=== PATIENT | male | born 1955 | race Caucasian/White ===

== ENCOUNTER 2022-09-22 15:33 | Outpatient (OUT) | payer MEDICARE, OTHER, SELFPAY ==
[2022-09-22 16:04] LABS: Basophils Absolute Auto 0.1 10^3/uL (0.0-0.1); Basophils Percent Auto 0.8 % (0.2-2.0); Eosinophils Absolute Auto 0.2 10^3/uL (0.0-0.7); Eosinophils Percent Auto 3.4 % (0.9-7.0); Hematocrit 39.1 % (42.0-54.0); Hemoglobin 13.3 g/dL (14.0-18.0); Immature Granulocytes Abs Auto 0.02 10^3/uL (0.00-0.03); Immature Granulocytes Pct Auto 0.3 % (0.0-0.5); Lymphocytes Absolute Auto 1.4 10^3/uL (1.2-3.8); Lymphocytes Percent Auto 22.8 % (20.5-60.0); Mean Corpuscular Hemoglobin 30.2 pg (25.9-34.0); Mean Corpuscular Volume 88.7 fL (80.0-94.0); Mean Platelet Volume 10.6 fL (9.5-13.5); Monocytes Absolute Auto 0.5 10^3/uL (0.3-0.8); Neutrophils Percent Auto 64.7 % (43.0-75.0); Platelet Count 178 10^3/uL (150-450); Red Blood Count 4.41 10^6/uL (4.70-6.10); Red Cell Distribution Width 13.3 % (11.0-15.0); White Blood Count 6.1 10^3/uL (4.0-11.0)
[2022-09-22 16:27] LABS: Estimated Average Glucose 111 mg/dL; Glycohemoglobin A1C 5.5 % (4.5-6.2)
[2022-09-22 16:49] LABS: Alanine Aminotransferase 37 U/L (16-63); Albumin Globulin Ratio 1.1; Albumin Level 3.9 g/dL (3.4-5.0); Alkaline Phosphatase 95 U/L (46-116); Anion Gap 13.3; Aspartate Amino Transferase 21 U/L (15-37); BUN Creatinine Ratio 12.8; Bilirubin Total 0.9 mg/dL (0.2-1.0); Calcium 8.5 mg/dL (8.5-10.1); Carbon Dioxide 27.5 mmol/L (21.0-32.0); Chloride 104 mmol/L (98-107); Chol HDL Ratio 3.3; Cholesterol 159 mg/dL (<=200); Estimated GFR (African America >60 (>=60); Estimated GFR (Non-African Ame >60 (>=60); Free T3 2.68 pg/mL (2.18-3.98); Globulin 3.5 g/dL; Glucose 93 mg/dL (74-106); HDL Cholesterol 48 mg/dL (40-60); LDL Cholesterol Calculated 83.8 mg/dL; Potassium 3.8 mmol/L (3.5-5.1); Sodium 141 mmol/L (136-145); Thyroid Stimulating Hormone 1.813 uIU/mL (0.358-3.740); Total Protein 7.4 g/dL (6.4-8.2); Triglycerides 136 mg/dL (<=150); VLDL CHOLESTEROL 27.2 mg/dL
[2022-09-22 16:57] LABS: Prostate Specific Antigen Scrn 1.44 ng/mL (<=4.00)
== END 2022-09-22 15:34 | disposition home or self-care (01) ==
LOC: LAB 15:40
PROVIDERS: PCP Family Medicine; Visit Provider Family Medicine
DX: Z00.00 Encounter for general adult medical examination without abnormal findings (principal); Z12.5 Encounter for screening for malignant neoplasm of prostate; E78.5 Hyperlipidemia, unspecified; R73.09 Other abnormal glucose
CPT/HCPCS: 36415; 80053; 80061; 83036; 84436; 84443; 84481; 85025; G0103

== ENCOUNTER 2022-09-23 07:54 | Outpatient (REF) | payer MEDICARE, OTHER, SELFPAY ==
[2022-09-23 16:06] LABS: Occult Blood Negative
== END 2022-09-23 07:55 | disposition home or self-care (01) ==
LOC: LAB 07:54
PROVIDERS: PCP Family Medicine; Visit Provider Family Medicine
DX: Z00.00 Encounter for general adult medical examination without abnormal findings (principal)
CPT/HCPCS: G0328

== ENCOUNTER 2023-09-21 07:33 | Outpatient (OUT) | payer OTHER, SELFPAY ==
[2023-09-21 07:47] LABS: Basophils Percent Auto 0.6 % (0.2-2.0); Eosinophils Absolute Auto 0.2 10^3/uL (0.0-0.7); Eosinophils Percent Auto 3.3 % (0.9-7.0); Hematocrit 40.2 % (42.0-54.0); Hemoglobin 13.8 g/dL (14.0-18.0); Immature Granulocytes Abs Auto 0.01 10^3/uL (0.00-0.03); Immature Granulocytes Pct Auto 0.2 % (0.0-0.5); Lymphocytes Absolute Auto 1.3 10^3/uL (1.2-3.8); Lymphocytes Percent Auto 26.1 % (20.5-60.0); Mean Corpuscular HGB Conc 34.3 g/dL (29.9-35.2); Mean Corpuscular Hemoglobin 30.1 pg (25.9-34.0); Mean Corpuscular Volume 87.8 fL (80.0-94.0); Mean Platelet Volume 10.4 fL (9.5-13.5); Monocytes Absolute Auto 0.5 10^3/uL (0.3-0.8); Monocytes Percent Auto 9.6 % (1.7-12.0); Neutrophils Absolute Auto 3.1 10^3/uL (1.4-6.5); Neutrophils Percent Auto 60.2 % (43.0-75.0); Platelet Count 158 10^3/uL (150-450); Red Blood Count 4.58 10^6/uL (4.70-6.10); Red Cell Distribution Width 13.2 % (11.0-15.0); White Blood Count 5.1 10^3/uL (4.0-11.0)
[2023-09-21 08:29] LABS: Estimated Average Glucose 105 mg/dL; Glycohemoglobin A1C 5.3 % (4.5-6.2)
[2023-09-21 08:39] LABS: Alanine Aminotransferase 38 U/L (16-63); Albumin Globulin Ratio 1.2; Albumin Level 3.8 g/dL (3.4-5.0); Alkaline Phosphatase 85 U/L (46-116); Anion Gap 12.2; Aspartate Amino Transferase 22 U/L (15-37); BUN Creatinine Ratio 18.3; Calcium 8.5 mg/dL (8.5-10.1); Carbon Dioxide 27.7 mmol/L (21.0-32.0); Chloride 103 mmol/L (98-107); Chol HDL Ratio 3.3; Cholesterol 187 mg/dL (<=200); Estimated GFR (African America >60 (>=60); Estimated GFR (Non-African Ame >60 (>=60); Globulin 3.2 g/dL; Glucose 111 mg/dL (74-106); HDL Cholesterol 57 mg/dL (40-60); Potassium 3.9 mmol/L (3.5-5.1); Sodium 139 mmol/L (136-145); Thyroid Stimulating Hormone 2.272 uIU/mL (0.358-3.740); Triglycerides 173 mg/dL (<=150); VLDL CHOLESTEROL 34.6 mg/dL
== END 2023-09-21 07:34 | disposition home or self-care (01) ==
LOC: LAB 07:33
PROVIDERS: PCP Family Medicine; Visit Provider Family Medicine
DX: E78.00 Pure hypercholesterolemia, unspecified (principal); R53.83 Other fatigue; R73.09 Other abnormal glucose; Z12.12 Encounter for screening for malignant neoplasm of rectum; Z12.5 Encounter for screening for malignant neoplasm of prostate
CPT/HCPCS: 36415; 80053; 80061; 83036; 84436; 84443; 84481; 85025; G0103

== ENCOUNTER 2023-09-22 07:46 | Outpatient (REF) | payer OTHER, SELFPAY ==
--- OUTSIDE RECORDS SUMMARY | 2023-09-22 07:50 | XMS_ITS | CCD ---
Author Organization [facility] Care Team Providers Care Otter Trawler Boatswain Name Role Phone Gagan Lyles Unavailable Unavailable Rafal, Gagan W Unavailable Unavailable Rafal, Gagan W Unavailable Unavailable LORIE ZENG Unavailable Unavailable DANYELLE MAC Unavailable Unavailable LORIE ZENG Unavailable Unavailable SHELLEY BAINS Attending Unavailable SHELLEY BAINS Primary Care Unavailable SHELLEY BAINS Admitting Unavailable Allergies Allergy Classification Reported Allergen(s) Allergy Type Date of Onset Reaction(s) Facility (1 source) No Known Medication Allergies; Translations: [No Known Medication Allergies] Propensity to adverse reactions (disorder) [facility] Repository Results Test Name Value Interpretation Reference Range Facility [facility] 09-06-2017 Albumin 4.3 g/dL Normal 3.3-5.0 [facility] Comment on above: Performed By: #### 2 [id number], [id number] ####[facility] [address] [place] [address] Albumin 1.3 g/dL Normal 1.1-2.2 [facility] Comment on above: Performed By: #### 2 [id number], [id number] ####[facility] [address] [place] [address] Alkaline phosphatase (ALP) 87 Int._Unit/L Normal 21-98 [facility] Comment on above: Performed By: #### 2 [id number], [id number] ####[facility] [address] [place] [address] ALT Without P-5'-P enzyme act/vol 46 Int._Unit/L Normal 6-46 [facility] Comment on above: Performed By: #### 2 412048, [id number] ####[facility] [address] [place] [address] Anion gap 13 mmol/L Normal 6-16 [facility] Comment on above: Performed By: #### 2 846096, [id number] ####[facility] [address] [place] [address] Aspartate aminotransferase (AST) 37 Int._Unit/L Normal 5-43 [facility] Comment on above: Performed By: #### 2 471897, [id number] ####[facility] [address] [place] [address] Bilirubin (total) 0.7 mg/dL Normal 0.0-1.1 [facility] Comment on above: Performed By: #### 2 695131, [id number] ####[facility] [address] [place] [address] BUN/Creatinine Ratio 15 No Units Normal 10-20 [facility] Comment on above: Performed By: #### 2 472902, [id number] ####[facility] [address] [place] [address] Calcium 9.1 mg/dL Normal 8.9-11.1 [facility] Comment on above: Performed By: #### 2 685336, [id number] ####[facility] [address] [place] [address] Chloride 105 mmol/L Normal 101-111 [facility] Comment on above: Performed By: #### 2 817546, [id number] ####[facility] [address] [place] [address] CO2 27 mmol/L Normal 21-31 [facility] Comment on above: Performed By: #### 2 825063, [id number] ####[facility] [address] [place] [address] Creatinine 1.3 mg/dL Normal 0.5-1.3 [facility] Comment on above: Performed By: #### 2 738044, [id number] ####[facility] [address] [place] [address] Globulin 3.4 g/dL Normal 1.4-4.0 [facility] Comment on above: Performed By: #### 2 457796, [id number] ####[facility] [address] [place] [address] Glucose mass conc 146 mg/dL Normal 55-199 [facility] Comment on above: Result Comment: If t his glucose result represents a fasting glucose, interpretation should refer to the following reference range: 55-99 mg/dL Performed By: #### 2 325815, [id number] ####[facility] [address] [place] [address] Potassium molar conc 4.2 mmol/L Normal 3.5-5.3 [facility] Comment on above: Performed By: #### 2 607985, [id number] ####[facility] [address] [place] [address] Protein 7.7 g/dL Normal 6.0-7.8 [facility] Comment on above: Performed By: #### 2 867877, 10886054 ####[facility] [address] [place] [address] Sodium 141 mmol/L Normal 135-145 [facility] Comment on above: Performed By: #### 2 654220, [id number] ####[facility] [address] [place] [address] Urea nitrogen 20 mg/dL Normal 5-21 [facility] Comment on above: Performed By: #### 2 687646, [id number] ####[facility] [address] [place] [address] eGFRon 09-06-2017 eGFR (black) mL/min/{1.73_m2} Normal >=59 [facility] Comment on above: Order Comment: Order added by Discern Expert. Result Comment: eGFR is race adjusted. AA=. Performed By: #### 2 751807, [id number] ####[facility] [address] [place] [address] eGFR (non-black) 56 mL/min/1.73 m2 Low >=59 [facility] Comment on above: Order Comment: Order added by Discern Expert. Result Comment: Bookkeeper aguila kidney disease could be indicated at eGFR's of less than 60 mL/min/1.73m2. Kidney failure is indicated at less than 15 mL/min/1.73m2. Performed By: #### 2 432088, [id number] ####[facility] [address] [place] [address] Coding Summary.on 08-12-2017 Coding Summary. 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 However, the narrative phrase printed from the coding software may appear abbreviated, or result in slightly different terminology. Coded By: Sharla Stewart Date Saved: 08/12/2017 03:36 pm Normal [facility] Inpatient Patient Summaryon 08-09-2017 Inpatient Patient Summary [place] [id number] [employer], [place] [id number] Clinical SummaryPerson Information Name: YVONNE LANGE Age: 61 Years : 1955 12:00 AM Sex: Male PCP: LORIE ZENG DO Marital Status: Phone: [phone] Race:White Ethnicity:Non-Hispani c or Language:Welsh Visit Id: Visit Reason:S/P LEFT STENT PLACEMENT Speciality: Acuity: Enc Type: Outpatient Med Service: Surgery Arrival:08/09/2017 2:35 PM Discharge: Dispo Type: Address:[address] [place] [id number] Provider Notes: Diagnosis: Problems No Problems Documented Smoking Status: Functional Status:Sensory Deficits: History of Falls: Mobility Assistance Prior to Admission: ADLs: Current Level of Assistance for Self-Care/Mobility: Cognitive Status: Allergies No Known Medication Allergies Laboratory or Other Results This Visit (last charted value for your 08/09/2017 visit) No Laboratory or Other Results This Visit Measurements:Height: 177.8 cmWeight: Blood Pressure: Not Valued / Not ValuedBMI: Procedures No Procedures Documented Immunizations No Immunizations Documented This Visit Final Med List:No Medications Documented Care Team Members:Attending Physician: Gagan Lyles MDonsulting Physician: Referring Physician: Gagan Lyles MD Follow up:With: Address: When: Gagan Lyles Within 2 to 4 weeks Patient Education Information: EU - Cystoscopy with Stent Removal Discharge Instructions (CUSTOM) [facility] Main OR Intraoperative Recor don 08-09-2017 Main OR Intraoperative Record IntraOp Document Type FTURO Summary Primary Physician: Gagan Lyles MD Finalized Date/Time: 08/09/17 16:46:46 Pt. Name: YVONNE LANGE/Sex: 1955 Male Med Rec #: [id number] Physician: Gagan Lyles MD Financial #: [id number] Pt. Type: O Room/Bed: / Admit/Disch: 08/09/17 14:35:39 - Institution: Case Times FTURO Entry 1 Patient Times In Room 08/09/17 16:33:00 Out Room 08/09/17 16:43:00 Procedure Times Start 08/09/17 16:39:00 Stop 08/09/17 16:41:00 Anesthesia Times Last Modified By: Suzi RN, JACKLYNOREli 08/09/17 16:41:45 Case Attendance FTURO Entry 1 Entry 2 Entry 3 Case Attendee Gagan Lyles MD RN, JACKLYNOREli CST, Gwen E Role Performed Surgeon - Primary Program Manager - Primary Scrub - Primary Time In 08/09/17 16:37:00 08/09/17 16:33:00 08/09/17 16:33:00 Time Out 08/09/17 16:43:00 08/09/17 16:43:00 08/09/17 16:43:00 Procedure CYSTOSCOPY LOCAL WITH CYSTOSCOPY LOCAL WITH CYSTOSCOPY LOCAL WITH STENT REMOVAL(Left) STENT REMOVAL(Left) STENT REMOVAL(Left) Comments Last Modified By: Suzi RN, JACKLYNOR, JACKLYN Geiger RNOREli RN, CNOR, Lou Ann 08/09/17 16:41:48 08/09/17 16:41:48 08/09/17 16:41:48 Surgical Procedures FTURO Entry 1 Procedure Description Procedure CYSTOSCOPY LOCAL WITH Modifiers Left STENT REMOVAL Surgeon Description CYSTO LEFT STENT REMOVAL Primary Procedure Yes Primary Surgeon Gagan Lyles MD Start 08/09/17 16:39:00 Stop 08/09/17 16:41:00 Anesthesia Type Local Surgical Service Urology Wound Class 2 - Clean-Contaminated Last Modified By: JACKLYN Archer RNOREli 08/09/17 16:41:24 General Case Data FTURO Pre-Care Text: Classifies surgical wound, implements aseptic technique, initiates traffic control Entry 1 Case Information OR URO 1 FT Case Level None Wound Class 2 - Clean-Contaminated Specialty Urology Preop Diagnosis S/P LEFT STENT PLACEMENT Postop Same As Preop Yes Postop Diagnosis S/P LEFT STENT PLACEMENT Outcomes Met? Yes Last Modified By: DOMINGA Archer RN, Lou Ann 08/09/17 12:45:10 Post-Care Text: The patient is free from signs and symptoms of infection EU IntraOp - FTURO Pre-Care Text: Implements protective measures prior to operative or invasive procedure, confirms identity before the operative or invasive procedure, verifies operative procedure, surgical site, and laterality Entry 1 EU Perioperative Protocols Procedure(s) CYSTOSCOPY LOCAL WITH Patient Identity Birthday, ID Band STENT REMOVAL(Left) Verified (select at Check, Patient least 2): Participation Consents / H and P HandP, Surgery/Procedure Operative Site N/A Verified Consent Marking Verified Surgical Site Yes Laterality Verified n/a Verified Procedure Verified Yes Correct Patient Yes Position Verified Availability Equipment, Medication Time Out Gagan Lyles MD, Verified (If Participants Suzi MASON, CNOR, Eli Applicable) Daniel Monterroso CST, Gwen E Time Out Complete 08/09/17 16:37:00 Allergies Reviewed? Yes Allergies Reviewed Self/Patient With Body Position Supine Prep Area penis Prep Agents Betadine Solution Skin. Condition Dry, Warm, Unable to Description clothing on Visualize Additional Other (See Comment) Specimens Comment srent Specimens Collected Vitals - EU Blood Pressure Pulse Respirations SPO2 EBL 0 IandO - EU Total Intake 0 mL Total Output 0 mL Outcomes Met? Yes Last Modified By: ODMINGA Archer RN, Lou Ann 08/09/17 16:38:43 Post-Care Text: The patient is free from signs and symptoms of injury caused by extraneous objects Case Comments Finalized By: DOMINGA Archer RN, Lou Ann Document Signatures Signed By: DOMINGA Archer RN, Lou Ann 08/09/17 16:41 DOMINGA Archer RN, Lou Ann 08/09/17 16:46 Normal [facility] Main OR Preoperative Recordo n 08-09-2017 Main OR Preoperative Record Holding Area Document Type FTURO Summary Primary Physician: Gagan Lyles MD Finalized Date/Time: 08/09/17 16:53:01 Pt. Name: ANISA YVONNE Parmjit Patel/Sex: 1955 Male Med Rec #: [id number] Physician: Gagan Lyles MD Financial #: [id number] Pt. Type: O Room/Bed: / Admit/Disch: 08/09/17 14:35:39 - Institution: Case Times Holding FTURO Pre-Care Text: Verifies consent for planned procedure, identifies individual values and wishes concerning care, includes family members in perioperative teaching Secures patient's records' belongings, and valuables, maintains patient's dignity and privacy, and maintains patient confidentiality Entry 1 In Holding 08/09/17 16:13:00 Outcomes Met? Yes Last Modified By: Katerina Berry LPN 08/09/17 16:13:40 Post-Care Text: The patient participates in decisions affecting his or her perioperative plan of care The patient's right to privacy is maintained Surgery Checklist FTURO Entry 1 Patient Birthday, ID Band Procedure History and Physical, Identification: Check, Patient Verification: Surgical Consent, With Participation Patient NPO after Midnight: n/a Personal Items: Glasses Complaints of Pain: Yes Pain Comment: 05/24 left lower abd Skin Integrity Intact, [employer], Warm, & Dry Vitals - EU Blood Pressure 157/95 Pulse 67 bpm Respirations 16 br/min SPO2 Additional None RN Reviewed Yes Specimens Collected Last Modified By: DOMINGA Archer RN, Lou Ann 08/09/17 16:39:22 Finalized By: DOMINGA Archer RN, Lou Ann Document Signatures Signed By: Kristi BARBOSAJeannea 08/09/17 16:16 DOMINGA Archer RN, Lou Ann 08/09/17 16:39 DOMINGA Archer RN, Lou Ann 08/09/17 16:53 [facility] Operative Reporton 8 Operative Report Patient: FADY LANGE Age: 61 years Sex: Male : 1955 Associated Diagnoses: None Author: Gagan Lyles MD Procedure Operative Information Details: Date/ Time: 08/09/17 16:45:00. Pre-Op Dx: Foreign Body in Bladder - T19.1XXA. Post-Op Dx: Same. Anesthesia Type: Local. Procedure: Local Cystoscopy with Stent Removal. Complications: None. Risks/Benefits/Inform ed Consent: Surgical risks, benefits, details of the procedure have been explained to the patient, Full informed consent has been obtained. Intraoperative Information Prepped: The patient was placed in supine position, The patient was prepped with the Betadine solution. Anesthesia: 2% Xylocaine Jelly per urethra. Procedure: Cystoscopy and Left Stent Removal, The flexible Cystoscope was passed in retrograde fashion into the bladder without difficulty, The bladder was viewed in entirety and found to be without tumors or stones, Mild inflammation was seen surrounding the orifice with the stent seen protruding from it, The stent was then grasped and removed in its entirety. Specimens Removed: None. Devices Implanted: None. Postoperative Information Discharge: The patient tolerated the procedure well and was subsequently discharged home, office x 2 wks kub. Normal [facility] Comment on above: Result Comment: Elec tronically Signed By: Gagan Lyles MD\.br\Date and Time Signed: 08/09/17 16:46 EDT Encounters Encounter Date Encounter Type Care Provider Facility Start: 07-16-2021 ambulatory SHELLEY BAINS Facility:[facility] Start: 09-06-2017 End: 09-07-2017 Patient encounter DANYELLE MAC [place] [place]: 08-09-2017 End: 08-10-2017 Patient encounter Gagan Lyles [place] [place] Payers Date Payer Category Payer Unknown 1959 Self-pay 1955 Unknown [id number] Summary Purpose Family History No Family History Records FoundNo Family History Records Found Advance Directives No Advanced Directives Records FoundNo Advanced Directives Records Found Additional Source Comments (unrecognized sect ion and content) No Status Records FoundNo Status Records Found INFORMATION SOURCE (unrecogn ized section and content) DATE CREATED AUTHOR 09/07/2017 [facility] DATE CREATED AUTHOR AUTHOR'S ORGANIZ [facility] 07/17/2021 [facility] FOR RECORDS PERTAINING TO PATIENTS WHO ARE OR HAVE BEEN ENROLLED IN A CHEMICAL DEPENDENCY/SUBSTANCEABUSE PROGRAM, SOME INFORMATION MAY BE OMITTED. This clinical summary was aggregated from multiple sources. Caution should be exercised in using it in the provision of clinical care. This summary normalizes information from multiple sources, and as a consequence, information in this document may materially change the coding, format and clinical context of patient data. In addition, data may be omitted in some cases. CLINICAL DECISIONS SHOULD BE BASED ON THE PRIMARY CLINICAL RECORDS. [facility] [employer] provides no warranty or guarantee of the accuracy or completeness of information in this document.
[2023-09-22 08:02] LABS: Internal Control Within Normal Limits; Occult Blood Positive
== END 2023-09-22 07:47 | disposition home or self-care (01) ==
LOC: LAB 07:46
PROVIDERS: PCP Family Medicine; Visit Provider Family Medicine
DX: E78.00 Pure hypercholesterolemia, unspecified (principal); R53.83 Other fatigue; R73.09 Other abnormal glucose; Z12.12 Encounter for screening for malignant neoplasm of rectum; Z12.5 Encounter for screening for malignant neoplasm of prostate
CPT/HCPCS: G0328

== ENCOUNTER 2023-11-01 14:51 | Outpatient (OUT) | payer OTHER, SELFPAY | END 2023-11-01 14:52 | disposition home or self-care (01) | LOC: PST 14:51 | PROVIDERS: PCP Family Medicine; Visit Provider Surgery | DX: Z01.818 Encounter for other preprocedural examination (principal); R19.5 Other fecal abnormalities ==

== ENCOUNTER 2023-11-09 07:06 | Day surgery (SDC) | payer OTHER, SELFPAY ==
--- NOTE | 2023-11-09 | OP_ITS ---
OPERATION DATE: 11/09/2023 PREOPERATIVE DIAGNOSIS: Positive fecal occult blood test. POSTOPERATIVE DIAGNOSIS: 4 mm sigmoid and rectal polyps. PROCEDURE: Colonoscopy to cecum with cold snare polypectomy x2. SURGEON: Jesus Alberto Zapata M.D. ANESTHESIA: Monitored anesthesia care. ESTIMATED BLOOD LOSS: Less than 2 mL. INDICATIONS AND CONSENT: Patient is a 67-year-old male with recent positive fecal occult blood test. Indications, risks, benefits, alternatives of proceeding with colonoscopy were explained extensively to the patient, including the risks of bleeding, colon perforation or anesthetic complications. All of his questions were answered. Informed consent was obtained. PROCEDURE: Patient brought to the operating room, placed in the left lateral decubitus position. Monitored anesthesia care was provided. Rectal exam was performed which showed no masses or blood. The scope was inserted into the anal canal. Under direct visualization was advanced. With the aid of abdominal compression, it was advanced to the cecum where cecal markings were clearly identified. There was noted to be a good prep. Upon withdrawal of the scope, mucosal surfaces were carefully examined. There were no mass lesions or inflammatory changes. No significant diverticulosis. Within the distal sigmoid colon, there was noted to be a 4 mm, erythematous, sessile polyp that was removed with cold snare with good hemostasis. Within the rectum, there was another 4 mm erythematous, sessile polyp that was also removed with cold snare with good hemostasis. There was noted to be some oozing at the site, which was then controlled with cautery. Polyps were sent off to pathology. The scope was retroflexed in the anal canal. There was no significant hemorrhoidal disease. Scope was then withdrawn. Patient tolerated procedure well, was sent to recovery room in good condition. CC: Logan Nguyen M.D. MOHAN
--- OUTSIDE RECORDS SUMMARY | 2023-11-09 07:09 | XMS_ITS | CCD ---
Author Organization [facility] Care Team Providers Care Front Desk Specialist Name Role Phone SHELLEY BAINS Attending Unavailable SHELLEY BAINS Primary Care Unavailable SHELLEY BAINS Admitting Unavailable Logan Nguyen Primary Care Physician [phone] Jesus Alberto DENTON Attending Unavailable Logan Nguyen Referring Unavailable Allergies Allergy Classification Reported Allergen(s) Allergy Type Date of Onset Reaction(s) Facility (1 source) No Known Medication Allergies; Translations: [No Known Medication Allergies] Propensity to adverse reactions (disorder) [facility] Repository Medications Current Medications Medication Drug Class(es) Dates Sig (Normalized) Sig (Original) aspirin 81 mg delayed release oral tablet (1 source) Platelet Aggregation Inhibitor, Nonsteroidal Anti-inflammatory Drug Start: 09-29-19 take 1 tablet by mouth every other day aspirin 81 mg Oral EC Tab 81 mg = 1 tab(s), Oral, Every other day, Refills(s) 0 Start Date: 09/29/23 Status: Ordered atorvastatin 20 mg oral tablet (1 source) HMG-CoA Reductase Inhibitor Start: 09-29-19 take 1 tablet by mouth once daily atorvastatin 20 mg Tab 20 mg = 1 tab(s), Oral, Daily, Refills(s) 0 Start Date: 09/29/23 Status: Ordered ferrous sulfate 325 mg oral tablet (1 source) Start: 09-29-19 take 1 tablet by mouth twice daily ferrous sulfate 325 mg Tab 325 mg = 1 tab(s), Oral, BID, Refills(s) 0 Start Date: 09/29/23 Status: Ordered hydroCHLOROthiazide 25 mg oral tablet (1 source) Thiazide Diuretic Start: 09-29-19 take 1 tablet by mouth once daily hydrochlorothiazide 25 mg Tab 25 mg = 1 tab(s), Oral, Daily, Refills(s) 0 Start Date: 09/29/23 Status: Ordered lisinopril 20 mg oral tablet (1 source) Angiotensin Converting Enzyme Inhibitor Start: 09-29-19 take 1 tablet by mouth once daily lisinopril 20 mg Tab 20 mg = 1 tab(s), Oral, Daily, Refills(s) 0 Start Date: 09/29/23 Status: Ordered Multi Vitamins oral tablet (1 source) Start: 09-29-19 take 1 tablet by mouth once daily Multi Vitamins oral tablet 1 tab(s), Oral, Daily, Refill(s) 0 Start Date: 09/29/23 Status: Ordered sildenafil 100 mg oral tablet (1 source) Phosphodiesterase 5 Inhibitor Start: 09-29-19 take 1 tablet by mouth once daily Viagra 100 mg Tab 100 mg = 1 tab(s), Oral, Daily, Refills(s) 0 Start Date: 09/29/23 Status: Ordered tadalafil 20 mg oral tablet (1 source) Phosphodiesterase 5 Inhibitor Start: 09-29-19 take 1 tablet by mouth once daily Cialis 20 mg Tab 20 mg = 1 tab(s), Oral, Daily, Refills(s) 0 Start Date: 09/29/23 Status: Ordered Problems Problem Classification Problem Date Documented Da te Episodic/Chronic Abdominal hernia (1 source) Hiatal hernia 12-26-2018 Episodic Deficiency and other anemia (1 source) Anemia 10-13-2023 Episodic Disorders of lipid metabolism (2 sources) Hyperlipidemia; Translations: [Pure hypercholesterolemia] 12-26-2018 Chronic Esophageal disorders (1 source) Gastroesophageal reflux disease 12-26-2018 Chronic Essential hypertension (1 source) Hypertensive disorder 12-26-2018 Chronic Other gastrointestinal disorders (1 source) Abnormal feces; Translations: [Other fecal abnormalities] Onset: Episodic Other gastrointestinal disorders (2 sources) Occult blood in stools 09-29-2023 Episodic Other male genital disorders (1 source) Impotence 09-29-2023 Chronic Other nutritional; endocrine; and metabolic disorders (1 source) Body mass index 30+ - obesity 10-19-2023 Chronic Other nutritional; endocrine; and metabolic disorders (1 source) Obesity 09-29-2023 Chronic Other upper respiratory disease (1 source) Seasonal allergy 12-26-2018 Chronic Vital Signs Date Time Vital Sign Value Performing Clinician Savannah scott 10-19-2023 13:07-0400 Blood Pressure Location Jesus Alberto DENTON [facility] 10-19-2023 13:07-0400 Diastolic blood pressure 82 mm[Hg] Jesus Alberto NILL [facility] 10-19-2023 13:07-0400 Heart rate 72 /min Jesus Alberto NILL [facility] 10-19-2023 13:07-0400 Respiratory rate 16 /min Jesus Alberto NILL [facility] 10-19-2023 13:07-0400 Systolic blood pressure 138 mm[Hg] Jesus Alberto NILL [facility] Encounters Encounter Date Encounter Type Care Provider Facility Start: 10-19-2023 End: 10-19-2023 ambulatory Jesus Alberto DENTON Facility:[facility] Start: 10-19-2023 End: 10-19-2023 Patient encounter procedure Jesus Alberto GUNNL [facility] Start: 07-16-2021 ambulatory SHELLEY HERSON Facility:[facility] Procedures Date Procedure Procedure Detail Performing Clinician Start: 11-06-2012 Colonoscopy Jesus Alberto NILL Start: 11-06-2012 Esophagogastroduodenoscopy Jesus Alberto NILL Extracorporeal shock wave lithotripsy of calculus of kidney Jesus Alberto NILL Hand surgery Jesus Alberto NILL Immunizations Immunization Date Immunization Notes Care Provider Fa cility 05-23-2020 SARS-CoV-2 (COVID-19 ) mRNA BNT-162b2 vax Jesus Alberto NILL [facility] 05-02-2020 SARS-CoV-2 (COVID-19 ) mRNA BNT-162b2 vax Jesus Alberto NILL [facility] Payers Date Payer Category Payer Medicare [id number] 1959 Self-pay 1955 Unknown [id number] 1955 Unknown [id number] Social History Date Type Detail Facility Start: 10-19-2023 Tobacco smoking status Never s moked tobacco (finding) [facility] Tobacco smoking status Never [facility] Sex Assigned At Male [facility] Functional Status Date Assessment Result Facility 10-19-2023 Functional Status N/A [facility] Clinical Note 10-19-2023 Note Date & Type Note Facility 10-19-2023 Note General Surgery Offi ce/Clinic Note Chief Complaint consultation for anemia and positive occult stool HPI Staff 67 year old male presents on consultation from Dr. Nguyen for positive occult stool and anemia. Labs completed 09/20 with H/H 13.8 and 40.2. Last colonoscopy completed 10/2012 with internal hemorrhoids. Denies abdominal or rectal pain. No rectal bleeding or change in bowel habits. Denies nausea or vomiting. No unexplained weight loss. No known family history of colon cancer. History of Present Illness 67 yo male with h/o htn, hyperlipidemia, GERD, referred for positive fecal occult blood test; denies change in bms or blood in stools, no abd complaints; no abd operations; last colonoscopy 2012 with internal hemorrhoids; patient on baby asa daily, no NSAID use; no tobacco; no fmhx of GI malignancy or IBD. Review of Systems PHQ Score Initial Depression Screen Score: 0 SCORE ROS - Provider Constitutional: no fever, no sweats, no weight loss. Eyes: no glasses, no blurred vision, no visual loss. ENMT: no dentures, no hoarseness, no swallowing difficulties, no hearing loss, no ear infection(s), no nose bleeds. Cardiovascular: normal blood pressure, no chest pain, regular heartbeat, no heart murmur. Respiratory: no shortness of breath, no cough, no asthma, no wheezing. Gastrointestinal: no nausea, no vomiting, no diarrhea, no constipation, no blood in stool, no change in bowel habits, no abdominal pain, no hepatitis. Genitourinary: no kidney stones, no urine infection, no dysuria. Musculoskeletal: no pain, no weakness. Skin: no changing moles, no rash, no skin lumps. Neurologic: no seizures, no epilepsy, no headache. Psychiatric: no emotional or psychiatric problem. Heme/Lymph: no bleeding problems, no anemia, no blood clots, no transfusions. Allergy/Immunologic: no swollen lymph nodes/glands, no IV drug abuse. Other: Additional ROS info: Except as noted in the above Review of Systems and in the History of Present Illness, all other systems have been reviewed and are negative or noncontributory. Physical Exam Vitals & Measurements HR: 72(Peripheral) RR: 16 BP: 138/82 HT: 69 in HT: 175.2 cm WT: 104.1 kg WT: 229.02 lb BMI: 33.91 HEENT: normal conjunctiva, sclera clear, no scleral icterus, EOM intact, PERRLA, oral mucosa moist without lesions. Neck: trachea midline, no mass, symmetric, no thyromegaly or nodules, no adenopathy Respiratory: lungs CTA, respirations non labored. Cardiovascular: regular rate and rhythm, no murmur, no pedal edema or varicosities. Gastrointestinal: soft, non distended, no tenderness, no masses, no palpable hernias, diastasis recti no, no hepatosplenomegaly; normal bs Lymphatic: no cervical adenopathy, no supraclavicular adenopathy. Musculoskeletal: normal gait, digits and nails without infection, nodes, cyanosis, clubbing. Skin: no rashes, no lesions, no ulcers, no subcutaneous nodules, induration. Psychiatric/Neuro: oriented to time, place, person, judgement normal, affect appropriate for age, insight intact, no focal deficits. Tests: labs reviewed, review of old records completed , Discussed surgical options, risks, and possible complications with patient. Assessment/Plan 1. Positive fecal occult blood test (R19.5: Other fecal abnormalities) plan colonoscopy under anesthesia, informed consent obtained. Follow-up No qualifying data available Problem List/Past Medical History Ongoing Anemia BMI 33.0-33.9,adult GERD (gastroesophageal reflux disease) Hernia, hiatal Hyperlipidemia Hypertension Impotence Obesity Occult blood positive stool Positive fecal occult blood test Pure hypercholesterolemia Seasonal allergies Historical No qualifying data Procedure/Surgical History Colonoscopy (11/06/2012), Esophagogastroduodenoscopy (11/06/2012), ESWL - Extracorporeal shockwave lithotripsy for renal calculus, Hand surgery. Medications aspirin 81 mg Oral EC Tab, 81 mg= 1 tab(s), Oral, Every other day atorvastatin 20 mg Tab, 20 mg= 1 tab(s), Oral, Daily Cialis 20 mg Tab, 20 mg= 1 tab(s), Oral, Daily ferrous sulfate 325 mg Tab, 325 mg= 1 tab(s), Oral, BID hydrochlorothiazide 25 mg Tab, 25 mg= 1 tab(s), Oral, Daily lisinopril 20 mg Tab, 20 mg= 1 tab(s), Oral, Daily Multi Vitamins oral tablet, 1 tab(s), Oral, Daily Viagra 100 mg Tab, 100 mg= 1 tab(s), Oral, Daily Allergies No Known Allergies No Known Medication Allergies Social History Alcohol Current, Beer, 1-2 times per week, 10/19/2023 Substance Abuse - Denies Substance Abuse, 10/19/2023 Tobacco Never (less than 100 in lifetime) Tobacco Use:. Never Smokeless Tobacco Use:., 10/19/2023 Family History Emphysema: Father. Hypertension: Mother. Immunizations Vaccine Date Status SARS-CoV-2 (COVID-19) mRNA BNT-162b2 vax 05/23/2020 Recorded SARS-CoV-2 (COVID-19) mRNA BNT-162b2 vax 05/02/2020 Recorded [facility] Comment on above: Result Comment: Elec tronically Signed By: BERTIN YI, Jesus Alberto Page\Date and Time Signed: 10/19/23 13:45 EDT Evaluation + Plan note Note Date & Type Note Facility Evaluation + Plan note No data available for this section [facility] Hospital Discharge instructions Note Date & Type Note Facility Hospital Discharge instructions No data available for this section [facility] Progress note Note Date & Type Note Facility Progress note No data available for this section [facility] Summary Purpose Family History No Family History Records Found No data available for this section No Family History Records Found Advance Directives No Advanced Directives Records FoundNo Advanced Directives Records Found Additional Source Comments (unrecognized sect ion and content) No Status Records FoundNo Status Records Found INFORMATION SOURCE (unrecogn ized section and content) DATE CREATED AUTHOR 07/17/2021 [facility] DATE CREATED AUTHOR AUTHOR'S ORGANIZ ATION 10/21/2023 [facility] Patient Care team informatio n (unrecognized section and content) Personnel Name: Logan Nguyen MD Address: Address: [address] [place] [address] FOR RECORDS PERTAINING TO PATIENTS WHO ARE [...] BE BASED ON THE PRIMARY CLINICAL RECORDS. [facility] [employer] [facility]. provides no warranty or guarantee of the accuracy or completeness of information in this document.
[2023-11-09 07:14] VITALS: BP 148/91; PULSE 84; TEMP 36.3; O2SAT 97; BMI 31.7
[2023-11-09] MEDS: LACTATED RINGER'S SOLUTION 1,000 ML 50 ML IV (07:33)
[2023-11-09 08:44] VITALS: BP 149/81; PULSE 77; TEMP 36.6; O2SAT 96
[2023-11-09 09:00] VITALS: BP 155/112; PULSE 73; O2SAT 97
[2023-11-09 09:14] VITALS: BP 167/83; PULSE 68; O2SAT 97
== END 2023-11-09 09:14 | disposition home or self-care (01) ==
PROVIDERS: PCP Family Medicine; Visit Provider Surgery
PROC: (CPT 45385; principal; 2023-11-09 08:20)
DX: R19.5 Other fecal abnormalities (principal); D12.5 Benign neoplasm of sigmoid colon; K62.1 Rectal polyp; I10 Essential (primary) hypertension; E78.5 Hyperlipidemia, unspecified; K21.9 Gastro-esophageal reflux disease without esophagitis; Z79.82 Long term (current) use of aspirin; K44.9 Diaphragmatic hernia without obstruction or gangrene
CPT/HCPCS: 45385; 88305; J2371; J2704

== ENCOUNTER 2024-10-30 09:45 | Outpatient (OUT) | payer MEDICARE, SELFPAY ==
--- OUTSIDE RECORDS SUMMARY | 2024-10-30 09:53 | XMS_ITS | Patient Health Record ---
Author Organization The [facility] in [place] Address [address] [place] [address] Care Team Providers Care Therapeutic Recreation Assistant Name Role Phone Oh Nguyen Primary Care Provider Allergies No Known Allergies Reason For Referral No Information Medications Medication SIG (Take, Route, Frequency, Duration) Notes Start Date End Date Status Diclofenac Sodium 75 MG 1 tablet as need ed Orally Twice a day- PRN; Duration: 30 days 10/18/2023 Active Ferrous Sulfate 325 (65 Fe) MG 1 tablet Orally once a day; Duration: 30 days 09/22/2023 Active Aspirin 81 81 MG 1 tablet Orally every other day Active Atorvastatin Calcium 20 MG TAKE 1 TABLET BY MOUTH EVERYDAY AT BEDTIME; Duration: 90 Active Viagra 100 MG 1 tablet as needed Orally Once a day; Duration: 30 days taking both =- just not on same days 09/22/2022 Active Tadalafil 20 MG 1 tablet as needed Orally Once a day; Duration: 30 days taking both - but not same day 02/24/2023 Active Lisinopril 30 MG 1 tablet Orally Once a day; Duration: 90 days Active tiZANidine HCl 4 MG 2 tabs Orally qhs- PRN; Duration: 30 days 10/18/2023 Active Multi Vitamin - 1 tablet Orally Once a day Active hydroCHLOROthiazide 25 MG TAKE 1 TABLET BY MOUTH EVERY DAY IN THE MORNING FOR 90 DAYS; Duration: 90 Active Social History Tobacco Use: Social History Observation Description Date Details (start date - stop date) Never Smoker NA - NA Tobacco Use/Smoking Question Answer Notes Patient is a nonsmoker Alcohol Screen (Audit-C) Question Answer Notes Did you have a drink contain ing alcohol in the past year? Yes How often did you have 6 or more drinks on one occasion in the past year? Monthly or less (1 point) How many drinks did you have on a typical day when you were drinking in the past year? 1 or 2 drinks (0 point) How often did you have a dri nk containing alcohol in the past year? Less than monthly (1 point) Points 2 Interpretation Negative AUDIT-C (Standard) Question Answer Notes Did you [...] Problem Status W/U Status Risk Notes Problem Essential hypertensi on (57580795) Essential (primary) hypertension (I10) Active confirmed Problem Gastro-esophageal reflux disease without esophagitis (531862708) Gastro-esophageal reflux disease without esophagitis (K21.9) Active confirmed Problem Tubular adenoma of colon (654538585) Tubular adenoma of colon (D12.6) Active confirmed Problem Erectile dysfunction (disorder) (296913559) Impotence (N52.9) Active confirmed Problem Benign neoplasm of colon (36779600) Hyperplastic colonic polyp (K63.5) Active confirmed Problem hypercholesterolemia (disorder) (00706337) Hypercholesteremia (E78.00) Active confirmed Problem Low back pain (finding) (509075577) Other low back pain (M54.59) Active confirmed Vital Signs Blood pressure diastolic 82 mm Hg 10/30/2024 Height 69 in 10/30/2024 Blood pressure systolic 152 mm Hg 10/30/2024 Weight 226.8 lbs 10/30/2024 BMI 33.49 kg/m2 10/30/2024 Procedures Procedure Date Ordered Date Performed Result Body Sit e Colonoscopy 11/09/2023 Positive Encounters Encounter Location Date Provider Diagnosis [facility] [address] [place] [address] 10/30/2024 Oh Nguyen Essential (primary) hypertension I10 ; Hypercholesteremia E78.00 ; Arthralgia M25.50 ; Impotence N52.[address] [facility] [address] [place] [address] 11/11/2023 Oh Nguyen Essential (primary) hypertension I10 [facility] [address] [place] [address] 11/28/2023 Oh Nguyen Assessments Encounter Date Diagnosis (ICD Code) Assessment Notes Treatment Notes Treatment Clinical Notes Section Notes 10/30/2024 Essential (primary) hypertension (ICD-10 - I10) 10/30/2024 Hypercholesteremia (ICD-10 - E78.00) 11/11/2023 Essential (primary) hypertension (ICD-10 - I10) 10/30/2024 Arthralgia (ICD-10 - M25.50) 10/30/2024 Impotence (ICD-10 - N52.9) 10/30/2024 Dyspnea (ICD-10 - R06.00) Plan Of Treatment Pending Test Test Name Order Date CMP (COMPLETE METABOLIC PANEL) 3 CMP (COMPLETE METABOLIC PANEL) 4 HEMOGLOBIN A1C (GLYCO) 09/22/2022 HEMOGLOBIN A1C (GLYCO) 09/19/2023 HEMOGLOBIN A1C (GLYCO) 10/30/2024 LIPID PANEL (CHOL/TRIG/HDL/LDL) 09/23/19 23 LIPID PANEL (CHOL/TRIG/HDL/LDL) 09/19/19 24 LIPID PANEL (CHOL/TRIG/HDL/LDL) 10/31/19 25 CBC WITH DIFF 09/19/2023 CBC WITH DIFF 09/22/2022 PSA, PROSTATE-SPECIFIC ANTIGEN 3 PSA, TOTAL 09/19/2023 Treadmill Stress Test with Nuclear Imagi ng 10/30/2024 STOOL OCCULT BLOOD 09/19/2023 STOOL OCCULT BLOOD 09/22/2022 THYROID PANEL (T4/TSH/FREE T3) 3 THYROID PANEL (T4/TSH/FREE T3) 4 THYROID PANEL (T4/TSH/FREE T3) 5 PSA, SCREENING 10/30/2024 CMP (COMP MET STAPLES) w/eGFR CKD-EPI 2024 CBC WITH DIFF 10/30/2024 Insurance Providers Payer Name Payer Address Payer Phone Subscriber Number Group Number Insured Name Patient Relationship to Insured Coverage Start Date Coverage End Date MMO [employer] MEDICARE HMO [address] [place] [phone] [id number] Matias Phillip Self - patient is the insured [place] [address] [place] [address] [id number] Phillip Salcedo Self - patient is the insured 3 [facility] [employer] [address] [place] [phone] [id number] Matias Phillip Self - patient is the insured Medical (General) History Surgical History Surgery Date(Month/Year) Colonoscopy- NILL 2023 Kidney Stone Removal Hand Surgery- Right 1980 Leg Surgery- Left
--- OUTSIDE RECORDS SUMMARY | 2024-10-30 10:02 | XMS_ITS | CCD ---
Author Organization [facility] Care Team Providers Care Sugar Presser Name Role Phone SHELLEY BAINS Attending Unavailable SHELLEY BAINS Primary Care Unavailable SHELLEY BAINS Admitting Unavailable Logan Nguyen Primary Care Physician MD Jesus Alberto Zapata Attending Provider Jesus Alberto Zapata Attending Unavailable Jesus Alberto Zapata Admitting Unavailable NILJesus Alberto Gregorio Attending Unavailable NILJesus Alberto Gregorio Attending Unavailable NILL, Jesus Alberto Grace Attending Unavailable Logan Nguyen Referring Unavailable NILLJesus Alberto Attending Unavailable Allergies Allergy Classification Reported Allergen(s) Allergy Type Date of Onset Reaction(s) Facility (1 source) No Known Medication Allergies; Translations: [No Known Medication Allergies] Propensity to adverse reactions (disorder) [facility] Repository Medications Current Medications Medication Drug Class(es) Dates Sig (Normalized) Sig (Original) acetaminophen 325 mg / HYDROcodone bitartrate 5 mg oral tablet (2 sources) Opioid Agonist Start: 07-27-2017 take 1 tablet by mouth every four to six hours Hydrocodone-Acetam inophen ([place]) 5-325 mg tablet Active 1 TAB PO EVERY 4-6 HOURS September 21, 2017 aspirin 81 mg delayed release oral tablet (4 sources) Platelet Aggregation Inhibitor, Nonsteroidal Anti-inflammatory Drug Start: 07-25-2017 take 1 tablet by mouth every other day aspirin 81 mg Oral EC Tab 81 mg = 1 tab(s), Oral, Every other day, Refills(s) 0 Start Date: 09/29/23 Status: Ordered atorvastatin 20 mg oral tablet (4 sources) HMG-CoA Reductase Inhibitor Start: 09-29-2023 take 1 tablet by mouth once daily atorvastatin 20 mg Tab 20 mg = 1 tab(s), Oral, Daily, Refills(s) 0 Start Date: 09/29/23 Status: Ordered Start: 07-25-2017 Atorvastatin A ctive TABLET July 25, 2017 12:00am ferrous sulfate 325 mg oral tablet (3 sources) Start: 09-29-2023 take 1 tablet by mouth twice daily ferrous sulfate 325 mg Tab 325 mg = 1 tab(s), Oral, BID, Refills(s) 0 Start Date: 09/29/23 Status: Ordered glucose 0.4 mg/mg oral gel (1 source) Start: 07-25-2017 Dextrose (Gluco Burst) 40 % Gel Active July 25, 2017 12:00am hydroCHLOROthiazide 25 mg oral tablet (3 sources) Thiazide Diuretic Start: 09-29-2023 take 1 tablet by mouth once daily hydrochlorothiazide 25 mg Tab 25 mg = 1 tab(s), Oral, Daily, Refills(s) 0 Start Date: 09/29/23 Status: Ordered lisinopril 20 mg oral tablet (3 sources) Angiotensin Converting Enzyme Inhibitor Start: 09-29-2023 take 1 tablet by mouth once daily lisinopril 20 mg Tab 20 mg = 1 tab(s), Oral, Daily, Refills(s) 0 Start Date: 09/29/23 Status: Ordered Multi Vitamins oral tablet (3 sources) Start: 09-29-2023 take 1 tablet by mouth once daily Multi Vitamins oral tablet 1 tab(s), Oral, Daily, Refill(s) 0 Start Date: 09/29/23 Status: Ordered Marshall 4-Qgn-Aoa-Fish Oil (Fish Oil) 1,000 mg (120 mg-180 mg) Capsule (1 source) Start: 07-25-2017 Marshall 5-Vkg-Tri-Fish Oil (Fish Oil) 1,000 mg (120 mg-180 mg) Capsule Active July 25, 2017 12:00am 24 hr oxybutynin chloride 5 mg extended release oral tablet (2 sources) Cholinergic Muscarinic Antagonist Start: 07-27-2017 take 1 tablet by mouth twice daily Oxybutynin Chloride (Ditropan Xl) 5 mg tablet extended release 24hr Active 5 MG PO Twice daily September 21, 2017 12:00am sildenafil 100 mg oral tablet (3 sources) Phosphodiesterase 5 Inhibitor Start: 09-29-2023 take 1 tablet by mouth once daily Viagra 100 mg Tab 100 mg = 1 tab(s), Oral, Daily, Refills(s) 0 Start Date: 09/29/23 Status: Ordered tadalafil 20 mg oral tablet (3 sources) Phosphodiesterase 5 Inhibitor Start: 09-29-2023 take 1 tablet by mouth once daily Cialis 20 mg Tab 20 mg = 1 tab(s), Oral, Daily, Refills(s) 0 Start Date: 09/29/23 Status: Ordered Completed/Discontinued Medications Medication Drug Class(es) Dates Sig (Normalized) Sig (Original) ciprofloxacin 500 mg oral tablet (2 sources) Quinolone Antimicrobial Start: 07-27-2017 End: 09-28-2017 take 1 tablet by mouth twice daily Ciprofloxacin Hcl (Cipro) 500 mg tablet Discontinued 500 MG PO Twice daily 14 September 21, 2017 12:00am September 28, 2017 12:02am Problems Problem Classification Problem Date Documented Da te Episodic/Chronic Abdominal hernia (3 sources) Hiatal hernia 12-26-2018 Episodic Anal and rectal conditions (1 source) Rectal polyp; Translations: [Rectal polyp] Onset: 4 Episodic Deficiency and other anemia (3 sources) Anemia 10-13-2023 Episodic Disorders of lipid metabolism (6 sources) Hyperlipidemia; Translations: [Pure hypercholesterolemia] 12-26-2018 Chronic Esophageal disorders (3 sources) Gastroesophageal reflux disease 12-26-2018 Chronic Essential hypertension (3 sources) Hypertensive disorder 12-26-2018 Chronic Other and unspecified benign neoplasm (3 sources) Benign neoplasm of sigmoid colon; Translations: [Benign neoplasm of sigmoid colon] Onset: 4 Episodic Other and unspecified benign neoplasm (2 sources) Hyperplastic polyp of large intestine 11-22-2023 Episodic Other gastrointestinal disorders (1 source) Abnormal feces; Translations: [Other fecal abnormalities] Onset: 4 Episodic Other gastrointestinal disorders (6 sources) Occult blood in stools 09-29-2023 Episodic Other male genital disorders (3 sources) Impotence 09-29-2023 Chronic Other nutritional; endocrine; and metabolic disorders (3 sources) Body mass index 30+ - obesity 10-19-2023 Chronic Other nutritional; endocrine; and metabolic disorders (3 sources) Obesity 09-29-2023 Chronic Other upper respiratory disease (3 sources) Seasonal allergy 12-26-2018 Chronic Results Test Name Value Interpretation Reference Range Facility Ambulatory Visit Summaryon 1 Ambulatory Visit Summary Ambulatory Visit Summary YVONNE SALCEDO :1955 Visit Date:11/22/2023 Ambulatory Visit Instructions Your Diagnosis Benign neoplasm of sigmoid colon Hyperplastic rectal polyp Your Care Team Attending Physician - BERTIN YI, Jesus Alberto Grace Primary Care Physician - Logan Nguyen MD This Is Your Medications List Contact prescribing physician if questions or concerns aspirin (aspirin 81 mg Oral EC Tab) atorvastatin (atorvastatin 20 mg Tab) ferrous sulfate (ferrous sulfate 325 mg Tab) hydrochlorothiazide (hydrochlorothiazide 25 mg Tab) lisinopril (lisinopril 20 mg Tab) multivitamin (Multi Vitamins oral tablet) sildenafil (Viagra 100 mg Tab) tadalafil (Cialis 20 mg Tab) Procedures Performed Colonoscopy (11/09/2023), Colonoscopy (11/06/2012), Esophagogastroduodenoscopy (11/06/2012), ESWL - Extracorporeal shockwave lithotripsy for renal calculus, Hand surgery. Medications What How Much When Instructions Unchanged aspirin (aspirin 81 mg Oral EC Tab) 1 Tablets By Mouth Every other day Contact prescribing physician if questions or concerns Unchanged atorvastatin (atorvastatin 20 mg Tab) 1 Tablets By Mouth Every day Contact prescribing physician if questions or concerns Unchanged ferrous sulfate (ferrous sulfate 325 mg Tab) 1 Tablets By Mouth 2 times a day Contact prescribing physician if questions or concerns Unchanged hydrochlorothiazide (hydrochlorothiazide 25 mg Tab) 1 Tablets By Mouth Every day Contact prescribing physician if questions or concerns Unchanged lisinopril (lisinopril 20 mg Tab) 1 Tablets By Mouth Every day Contact prescribing physician if questions or concerns Unchanged multivitamin (Multi Vitamins oral tablet) 1 Tablets By Mouth Every day Contact prescribing physician if questions or concerns Unchanged sildenafil (Viagra 100 mg Tab) 1 Tablets By Mouth Every day Contact prescribing physician if questions or concerns Unchanged tadalafil (Cialis 20 mg Tab) 1 Tablets By Mouth Every day Contact prescribing physician if questions or concerns Allergies No Known Allergies No Known Medication Allergies Problems Ongoing - Any problem that you are currently receiving treatment for. Anemia Benign neoplasm of sigmoid colon BMI 33.0-33.9,adult GERD (gastroesophageal reflux disease) Hernia, hiatal Hyperlipidemia Hyperplastic rectal polyp Hypertension Impotence Obesity Occult blood positive stool Positive fecal occult blood test Pure hypercholesterolemia Seasonal allergies Patient Survey You may receive a survey via text or e-mail asking about your office visit. Please share your experience with us by completing your survey. We appreciate your feedback and thank you for choosing us for your care. Jose David Atwood [facility] General Surgery Office/Clini c Noteon 11-22-2023 General Surgery Office/Clinic Note General Surgery Office/Clinic Note Chief Complaint colonoscopy follow up HPI Staff 13 day post operative follow up post colonoscopy with sigmoid and rectal polypectomies. History of Present Illness s/p colonoscopy done for positive fecal occult blood test; small tubular adenoma removed from sigmoid, small hyperplastic polyp removed from rectum; doing well, denies abd pian or blood in stools. Review of Systems ROS - Provider Constitutional: no fever, no [...] been reviewed and are negative or noncontributory. Assessment/Plan 1. Benign neoplasm of sigmoid colon (D12.5: Benign neoplasm of sigmoid colon) recommend surveillance colonoscopy in 5 years, call sooner if problems/questions. 2. Hyperplastic rectal polyp (K62.1: Rectal polyp) see # 1 Follow-up No qualifying data available Problem List/Past Medical History Ongoing Anemia Benign neoplasm of sigmoid colon BMI 33.0-33.9,adult GERD (gastroesophageal reflux disease) Hernia, hiatal Hyperlipidemia Hyperplastic rectal polyp Hypertension Impotence Obesity Occult blood positive stool Positive fecal occult blood test Pure hypercholesterolemia Seasonal allergies Historical No qualifying data Procedure/Surgical History Colonoscopy (11/09/2023), Colonoscopy (11/06/2012), Esophagogastroduodenoscopy (11/06/2012), ESWL - Extracorporeal [...] SARS-CoV-2 (COVID-19) mRNA BNT-162b2 vax 05/02/2020 Recorded Normal [facility] Comment on above: Result Comment: Electronically Signed By : BERTIN YI, Jesus Alberto Page\Date and Time Signed: 11/22/23 15:03 EDT Reminderson 11-22-2023 Reminders Reminders From: Rosario Frank LPN To: N - Clinical; Sent: 11/22/2023 14:54:28 EDT Show up: 10/08/2028 07:00:00 EDT Subject: colonoscopy recall Due Date/Time: 11/08/2028 07:00:00 EDT Reminder/Recall Patient due for surveillance colonoscopy 11/08/28 due to history of tubular adenoma. Normal [facility] Tr 11-09-2023 L Specimen: [id number] eceived: 11/09/23 Status: HARRIETT Monsivais Num: [id number] Spec Type: Surgical Subm Dr: Jesus Alberto Zapata MD FACS Tissues: A Colon Biopsy (SIGMOID POLYP) B Colon Biopsy (RECTAL POLYP) Procedures: HE/4, Gross/Micro L4/2 Age/ Patient Sex Location Account Attending Physician Yvonne Salcedo 67/M [facility] [id number] Jesus Alberto Zapata MD FACS SPEC NUM: [id number] RECD: 11/09/23 STATUS: HARRIETT MONSIVAIS NUM: [id number] MANUEL: 11/09/[address]: Jesus Alberto Zapata MD FACS ENTERED: 11/09/23 [facility] DR: Cecil Beth SPEC TYPE: Surgical DEPT: [facility] ENTERED BY: [id number] RECV BY: [id number] ORDERED: HE/4, Gross/Micro L4/2 ORDERED: HE/4, Gross/Micro L4/2 Pathological Diagnosis A, sigmoid polyp biopsy: -Tubular adenomatous polyp B, rectal polyp biopsy: -Small hyperplastic polyp -Incidental small superimposed foci of vascular granulation tissue and superficial chronic ulceration Clinical Information Sigmoid polyp, rectal polyp Gross Description Part A received in formalin with the patient's name and sigmoid polyp and consists of a nesbitt polypoid shaped soft tissue fragment measuring 0.5 cm in greatest dimension. The specimen is entirely submitted in cassette A1 Part B received in formalin with the patient's name and rectal polyp and consists of a single nesbitt polypoid shaped soft tissue measuring 0.3 cm in greatest dimension. The specimen -- Specimen: [id number] Received: 11/09/23 Status: HARRIETT Monsivais Num: [id number] Spec Type: Surgical Subm Dr: Jesus Alberto Zapata MD FACS Tissues: A Colon Biopsy (SIGMOID POLYP) B Colon Biopsy (RECTAL POLYP) Procedures: CHINMarina Gross/Micro L4/2 -- Patient: Yvonne Salcedo [id number] (Continued) -- Specimen: [id number] Received: 11/09/23 (Continued) Gross Description (Continued) Signed (signature on file) Daniel Monroy MD 11/14/23 1037 -- Specimen: [id number] Received: 11/09/23 Status: HARRIETT Monsivais Num: [id number] Spec Type: Surgical Subm Dr: Jesus Alberto Zapata MD FACS Tissues: A Colon Biopsy (SIGMOID POLYP) B Colon Biopsy (RECTAL POLYP) Procedures: Marina Gross/Micro L4/2 -- Patient: Yvonne Salcedo [id number] (Continued) -- Specimen: [id number] Received: 11/09/23 (Continued) Gross Description (Continued) is entirely submitted in cassette B1. Microscopic Description Microscopic examinations are performed supporting the above interpretation CPT Codes 86792 X2 -- -- Specimen: [id number] Received: 11/09/23 Status: HARRIETT Monsivais Num: [id number] Spec Type: Surgical Subm Dr: Jesus Alberto Zapata MD FACS Tissues: A Colon Biopsy (SIGMOID POLYP) B Colon Biopsy (RECTAL POLYP) Procedures: HE/4, Gross/Micro L4/2 -- Patient: Yvonne Salcedo [id number] (Continued) -- Signed (signature on file) Daniel Monroy MD 11/14/23 1037 Normal [facility] Vital Signs Date Time Vital Sign Value Performing Clinician Savannah scott 10-19-2023 13:07-0400 Blood Pressure Location Jesus Alberto ZAPATA [facility] [place] 10-19-2023 13:07-0400 Diastolic blood pressure 82 mm[Hg] Jesus Alberto ZAPATA [facility] [place] 10-19-2023 13:07-0400 Heart rate 72 /min Jesus Alberto ZAPATA [facility] [place] 10-19-2023 13:07-0400 Respiratory rate 16 /min Jesus Alberto ZAPATA [facility] [place] 10-19-2023 13:07-0400 Systolic blood pressure 138 mm[Hg] Jesus Alberto ZAPATA [facility] [place] Encounters Encounter Date Encounter Type Care Provider Facility Start: 11-22-2023 End: 11-22-2023 ambulatory Jesus Alberto ZAPATA Facility:[facility] Start: 11-22-2023 End: 11-22-2023 Patient encounter procedure Jesus Alberto ZAPATA [facility] [place] Start: 11-09-2023 End: 11-09-2023 ambulatory Jesus Alberto Zapata [facility] Work Phone: Start: 11-09-2023 End: 11-09-2023 Departed Referred MD Jesus Alberto Zapata Work Phone: [facility] [place] [facility] Start: 11-09-2023 End: 11-09-2023 ambulatory Jesus Alberto ZAPATA Facility::[id number] Start: 10-19-2023 End: 10-19-2023 ambulatory Jesus Alberto R NILJg Facility: [place] Start: 10-19-2023 End: 10-19-2023 Patient encounter procedure Jesus Alberto ZAPATA [facility] Start: 07-16-2021 ambulatory SHELLEY BAINS Facility:H 1 Procedures Date Procedure Procedure Detail Performing Clinician Start: 11-09-2023 Colonoscopy Jesus Alberto LUIS [place] Start: 11-06-2012 Colonoscopy Jesus Alberto NILL Start: 11-06-2012 Esophagogastroduodenoscopy Jesus Alberto ZAPATA Extracorporeal shock wave lithotripsy of calculus of kidney Jesus Alberto ZAPATA Hand surgery Jesus Alberto LUIS AL Immunizations Immunization Date Immunization Notes Care Provider Fa cility 05-23-2020 SARS-CoV-2 (COVID-19 ) mRNA BNT-162b2 vax Jesus Alberto NILL [facility] [place] 05-02-2020 SARS-CoV-2 (COVID-19 ) mRNA BNT-162b2 vax Jesus Alberto NILL [facility] Payers Date Payer Category Payer Medicare [id number] 1959 Self-pay 1955 Unknown [id number] 2.16.84 [id number] 1955 Unknown [id number] 2.16.8 [id number] 1955 Unknown [id number] 2.16.8 [id number] 1955 Unknown [id number] 2.16.8 [id number] 1955 Unknown [id number] 2.16.8 [id number] Unknown [facility] [id number] Unknown [id number] 2.16.8 [id number] Social History Date Type Detail Facility Start: 10-19-2023 Tobacco smoking status Never s moked tobacco (finding) [facility] Tobacco smoking status Never [facility] Sex Assigned At Male [facility] Start: 1955 Sex Assigned At Male [facility] Functional Status Date Assessment Result Facility 10-19-2023 Functional Status N/A [facility] Clinical Note 10-19-2023 Note Date & Type [...] SARS-CoV-2 (COVID-19) mRNA BNT-162b2 vax 05/02/2020 Recorded [facility] Comment on above: Result Comment: Elec tronically Signed By: BERTIN YI, Jesus Alberto Herreraleyla\Date and Time Signed: 10/19/23 13:45 EDT Evaluation + Plan note Note Date & Type Note Facility Evaluation + Plan note No data available for this section [facility] Evaluation note Note Date & Type Note Facility Evaluation note No assessment information availa [facility] Work Phone: Hospital Discharge instructions Note Date & Type Note Facility Hospital Discharge instructions No data available for this section [facility] Progress note Note Date & Type Note Facility Progress note No data available for this section [facility] Summary Purpose Family History No Family History Records Found No data available for this section No Family History Records FoundNo Family History Records Found No data available for this section No data available for this section Advance Directives Advance Directive Response Recorded Date/ Time Advance Directives No July 25 18 2:27pm Additional Source Comments (unrecognized sect ion and content) No Status Records FoundNo Status Records FoundNo Status Records Found INFORMATION SOURCE (unrecogn ized section and content) DATE CREATED AUTHOR 07/17/2021 [facility] DATE CREATED AUTHOR AUTHOR'S ORGANIZ ATION 11/15/2023 [facility] DATE CREATED AUTHOR AUTHOR'S ORGANIZ ATION 11/24/2023 [facility] Patient Care team informatio n (unrecognized section and content) Personnel Name: Wendy YI Logan Address: Address: [address] [place] [id number] Team Status: Inactive Member Role Status Dates Jesus Alberto Zapata MD FACS Attending Provider Active Start: November 09, 2023 End: November 09, 2023 Goals (unrecognized section and content) Goals may be documented in a n alternate section FOR RECORDS PERTAINING TO PATIENTS WHO ARE [...] BE BASED ON THE PRIMARY CLINICAL RECORDS. [facility] [employer] [facility]. provides no warranty or guarantee of the accuracy or completeness of information in this document.
[2024-10-30 10:25] LABS: Hematocrit 41.6 % (42.0-54.0); Hemoglobin 14.4 g/dL (14.0-18.0); Immature Granulocytes Abs Auto 0.01 10^3/uL (0.00-0.03); Immature Granulocytes Pct Auto 0.2 % (0.0-0.5); Lymphocytes Absolute Auto 1.4 10^3/uL (1.2-3.8); Mean Corpuscular HGB Conc 34.6 g/dL (29.9-35.2); Mean Corpuscular Hemoglobin 30.4 pg (25.9-34.0); Mean Corpuscular Volume 87.9 fL (80.0-94.0); Platelet Count 180 10^3/uL (150-450); Red Blood Count 4.73 10^6/uL (4.70-6.10); White Blood Count 5.3 10^3/uL (4.0-11.0)
[2024-10-30 11:26] LABS: Alanine Aminotransferase 46 U/L (16-63); Albumin Globulin Ratio 1.1; Albumin Level 4.0 g/dL (3.4-5.0); Alkaline Phosphatase 107 U/L (46-116); Anion Gap 8.5; Aspartate Amino Transferase 26 U/L (15-37); Blood Urea Nitrogen 19.0 mg/dL (7.0-18.0); Calcium 8.8 mg/dL (8.5-10.1); Carbon Dioxide 30.3 mmol/L (21.0-32.0); Chloride 105 mmol/L (98-107); Cholesterol 194 mg/dL (<=200); Estimated GFR (African America >60 (>=60 mL/min/1.73m^2); Estimated GFR (Non-African Ame >60 (>=60 mL/min/1.73m^2); Free T3 2.56 pg/mL (2.18-3.98); Globulin 3.8 g/dL; Glucose 101 mg/dL (74-106); HDL Cholesterol 54 mg/dL (40-60); Potassium 3.8 mmol/L (3.5-5.1); Sodium 140 mmol/L (136-145); Thyroid Stimulating Hormone 2.301 uIU/mL (0.358-3.740); Total Protein 7.8 g/dL (6.4-8.2); Triglycerides 135 mg/dL (<=150); VLDL CHOLESTEROL 27.0 mg/dL
== END 2024-10-30 09:46 | disposition home or self-care (01) ==
LOC: LAB 09:50
PROVIDERS: PCP Family Medicine; Visit Provider Family Medicine
DX: E78.00 Pure hypercholesterolemia, unspecified (principal); I10 Essential (primary) hypertension; M25.50 Pain in unspecified joint; N52.9 Male erectile dysfunction, unspecified; R73.09 Other abnormal glucose; R53.83 Other fatigue; R06.00 Dyspnea, unspecified; Z12.5 Encounter for screening for malignant neoplasm of prostate
CPT/HCPCS: 36415; 80053; 80061; 83036; 84436; 84443; 84481; 85025; G0103

== ENCOUNTER 2024-11-06 07:14 | Outpatient (OUT) | payer MEDICARE, SELFPAY ==
--- OUTSIDE RECORDS SUMMARY | 2024-10-30 05:00 | XMS_ITS ---
Author Organization The [facility] in [place] Address [address] [place] [address] Care Team Providers Care Peanut Grader Name Role Phone Oh Nguyen Primary Care Provider Allergies No Known Allergies REASON FOR VISIT YEARLY- med refills Medications Medication SIG (Take, Route, Frequency, Duration) Notes Start Date End Date Status Viagra 100 MG 1 tablet as needed Orally Once a day; Duration: 30 days taking both =- just not on same days 09/22/2022 Active Tadalafil 20 MG 1 tablet as needed Orally Once a day; Duration: 30 days taking both - but not same day 02/24/2023 Active tiZANidine HCl 4 MG 2 tabs Orally qhs- PRN; Duration: 30 days 10/18/2023 Active Multi Vitamin - 1 tablet Orally Once a day Active hydroCHLOROthiazide 25 MG TAKE 1 TABLET BY MOUTH EVERY DAY IN THE MORNING FOR 90 DAYS; Duration: 90 Active Diclofenac Sodium 75 MG 1 tablet as need ed Orally Twice a day- PRN; Duration: 30 days 10/18/2023 Active Ferrous Sulfate 325 (65 Fe) MG 1 tablet Orally once a day; Duration: 30 days 09/22/2023 Active Aspirin 81 81 MG 1 tablet Orally every other day Active Atorvastatin Calcium 20 MG TAKE 1 TABLET BY MOUTH EVERYDAY AT BEDTIME; Duration: 90 Active Lisinopril 30 MG 1 tablet Orally Once a day; Duration: 90 days Active Social History Tobacco Use: Social History Observation Description Date Details (start date - stop date) Never Smoker NA - NA Tobacco Use/Smoking Question Answer Notes Patient is a nonsmoker AUDIT-C (Standard) Question Answer Notes Did you have a drink contain ing alcohol in the past year? Yes How often did you have a dri nk containing alcohol in the past year? 2 to 4 times a month (2 points) How many drinks did you have on a typical day when you were drinking in the past year? 1 or 2 drinks (0 point) How often did you have six o r more drinks on one occasion in the past year? Never (0 point) Points 2 Interpretation Negative Problems Problem Type SNOMED Code ICD Code Onset Dates Problem Status W/U Status Risk Notes Problem Erectile dysfunction (disorder) (647648276) Impotence (N52.9) Active confirmed Vital Signs Weight 226.8 lbs 10/30/2024 Height 69 in 10/30/2024 Blood pressure systolic 152 mm Hg 10/31/19 25 Blood pressure diastolic 82 mm Hg 025 BMI 33.49 kg/m2 10/30/2024 Encounters Encounter Location Date Provider Diagnosis [facility] [address] [place] [address] 10/30/2024 Oh Nguyen Essential (primary) hypertension I10 ; Hypercholesteremia E78.00 ; Arthralgia M25.50 ; Impotence N52.9 and Dyspnea R06.00 Assessments Encounter Date Diagnosis (ICD Code) Assessment Notes Treatment Notes Treatment Clinical Notes Section Notes 10/30/2024 Essential (primary) hypertension (ICD-10 - I10) 10/30/2024 Hypercholesteremia (ICD-10 - E78.00) 10/30/2024 Arthralgia (ICD-10 - M25.50) 10/30/2024 Impotence (ICD-10 - N52.9) 10/30/2024 Dyspnea (ICD-10 - R06.00) Plan Of Treatment Medication Medication Name Sig Start Date Stop Date Notes Lisinopril 30 MG 1 tablet Orally Once a day; Duration: 90 days Pending Test Test Name Order Date HEMOGLOBIN A1C (GLYCO) 10/30/2024 LIPID PANEL (CHOL/TRIG/HDL/LDL) 10/31/19 25 Treadmill Stress Test with Nuclear Imagi ng 10/30/2024 THYROID PANEL (T4/TSH/FREE T3) 5 PSA, SCREENING 10/30/2024 CMP (COMP MET STAPLES) w/eGFR CKD-EPI 09/16/ 2025 CBC WITH DIFF 10/30/2024 Progress Notes * Phillip SALCEDO EDOB:1955 (68 yo M)Acc No.[id number]:10/30/2024 Progress Note Patient: Phillip JOHANSEN Provider: Sunday Nguyen ([facility])MD :1955 A ge:68 Y S ex:Male Date:10/30/2024 Address:[address] [place] [address] [place], [id number] Check In:08:58 AM ESTCheck O ut:09:36 AM EST Subjective: * Chief Complaints: * Y EARLY- med refills * HPI: G eneral: HTn stabel at home on chol - meds -revieweed Irton def anemai - tolerated meds impotence. * ROS: E ENT: hearing changes d enies. v isual changes d enies.?non-healing mouth sores d enies. s wollen glands or neck lumps d enies. h oarseness d enies. s ore throat d enies. d ifficulty swallowing d enies. n ose bleeds d enies. n flavio congestion d enies. e ar ache d enies. e ar discharge?denies. r inging in ears d enies. l ight sensitivity d enies. e ye pain d enies. b lurring d enies. e ye irritation d enies. d ouble vision d enies.?vision loss d enies. G eneral/Constitutional: Sweats: D enies. F atigue d enies. S leep problems d enies. A norexia d enies. M alaise d enies. W eight loss d enies.?Fatigue or Weakness d enies. F ever or Chills d enies. C ardiovascular: Shortness of Breath w/lying flat d enies. L ightheadedness/dizziness d enies. C hest tightness/ heavy pressure d enies. S welling of legs, ankles, or feet d enies. W aking up with shortness of breath d enies. C hest pain denies. P alpitations d enies. W eight gain d enies. R espiratory: Chronic or frequent cough d enies. C oughing up blood?denies. D ifficulty breathing d enies. P roductive cough d enies. S noring?denies. S hortness of breath that awakens from sleep (PND) d enies. C hest pain d enies. S putum production d enies. W heezing d enies. M usculoskeletal: Joint pain d enies. J oint Fluid d enies. B ack pain d enies. K nee pain d enies. N marco antonio pain d enies. J oint Stiffness d enies. M uscle cramps d enies. W eakness of muscles d enies. A rthritis d enies. M uscle aches d enies. P ain in shoulder(s) d enies. S wollen joints d enies. * Active Problem List M54.59 Other low back pain Modified On:09/21/2022/U Status:confirmed I10 Essential (primary) hypertension Modified On:05/04/2023/U Status:confirmed K21.9 Gastro-esophageal re flux disease without esophagitis Modified On:05/04/2023/U Status:confirmed E78.00 Hypercholesteremia Modified On:09/19/2023/U Status:confirmed K63.5 Hyperplastic colonic polyp Modified On:11/17/2023U Status:confirmed D12.6 Tubular adenoma of c olon Modified On:11/17/2023/U Status:confirmed N52.9 Impotence Modified On:10/30/2024/U Status:confirmed * Medical History: * Surgical History: L eg Surgery- Left Hand Surgery- Right 1981Kidney Stone Removal Colonoscopy- NILL 2023 * Hospitalization/Major Diagno stic Procedure: D enies Past Hospitalization * Family History: F ather: . M other: , heart failure. S ister(s): alive. S on(s): alive. D aughter(s): alive. 2 sister(s) . 1 son(s) , 1 daughter(s) - healthy. . * Social History: T obacco Use: T obacco Use/Smoking P atient is a n onsmoker D rug/Alcohol: A RICK-C (Standard) D id you have a drink containing alcohol in the past year? Y es H ow often did you have a drink containing alcohol in the past year? 2 to 4 times a month (2 points) H ow many drinks did you have on a typical day when you were drinking in the past year? 1 or 2 drinks (0 point) H ow often did you have six or more drinks on one occasion in the past year? N ever (0 point) P oints 2 I nterpretation N egative * Medications: T akingAspirin 81(Aspirin) 81 MG Tablet Delayed Release 1 tablet Orally every other day Atorvastatin Calcium 20 MG Tablet TAKE 1 TABLET BY MOUTH EVERYDAY AT BEDTIME Diclofenac Sodium 75 MG Tablet Delayed Release 1 tablet as needed Orally Twice a day- PRN Ferrous Sulfate 325 (65 Fe) MG Tablet 1 tablet Orally once a day hydroCHLOROthiazide 25 MG Tablet TAKE 1 TABLET BY MOUTH EVERY DAY IN THE MORNING FOR 90 DAYS Lisinopril 20 MG Tablet 1 tablet Orally Once a day Multi Vitamin - Tablet 1 tablet Orally Once a day Tadalafil 20 MG Tablet 1 tablet as needed Orally Once a day , Notes to Pharmacist: taking both - but not same daytiZANidine HCl 4 MG Tablet 2 tabs Orally qhs- PRN Viagra 100 MG Tablet 1 tablet as needed Orally Once a day , Notes to Pharmacist: taking both =- just not on same daysMedication List reviewed and reconciled with the patientTaking Aspirin 81(Aspirin) 81 MG Tablet Delayed Release 1 tablet Orally every other day Taking Atorvastatin Calcium 20 MG Tablet TAKE 1 TABLET BY MOUTH EVERYDAY AT BEDTIME Taking Diclofenac Sodium 75 MG Tablet Delayed Release 1 tablet as needed Orally Twice a day- PRN Taking Ferrous Sulfate 325 (65 Fe) MG Tablet 1 tablet Orally once a day Taking hydroCHLOROthiazide 25 MG Tablet TAKE 1 TABLET BY MOUTH EVERY DAY IN THE MORNING FOR 90 DAYS Taking Lisinopril 20 MG Tablet 1 tablet Orally Once a day Taking Multi Vitamin - Tablet 1 tablet Orally Once a day Taking Tadalafil 20 MG Tablet 1 tablet as needed Orally Once a day , Notes to Pharmacist: taking both - but not same dayTaking tiZANidine HCl 4 MG Tablet 2 tabs Orally qhs- PRN Taking Viagra 100 MG Tablet 1 tablet as needed Orally Once a day , Notes to Pharmacist: taking both =- just not on same daysMedication List reviewed and reconciled with the patient * Allergies: N .K.D.A.no[Allergies Verified] Objective: * Vitals: W t:226.8lbs, Ht: 69 in, BP:152/82mm Hg, BMI:33.49Index, Ht-cm: 175.26 cm, Wt-k.88 kg. * Examination: P hysical Exam: GENERAL: w ell developed, well nourished, in no acute distress. HEAD: n ormocephalic/atraumatic. EYES: p upils equal, round and reactive to light, conjunctivae and sclerae normal. EARS: n o deformity or lesion of external ear, canals and TM appear normal bilaterally, TM's intact, not inflamed with normal light reflex, hearing grossly normal to conversational speech. NOSE: n o deformity, discharge, inflammation, or lesions.? MOUTH: m ucous membranes moist, normal oropharynx and posterior pharynx without lesions or exudates, tongue normal, dentition normal. NECK: n marco antonio supple, no masses or palpable cervical nodes, trachea midline, thyroid without nodules, masses, tenderness, or enlargement. CHEST: n o chest wall deformity, no chest wall tenderness.? LUNGS: n ormal respiratory effort and clear to auscultation, no wheezes, rales, or rhonchi, good air exchange. CARDIO: r egular rate and rhythm, normal S1 and S2, nor murmur, rub, or gallop. PULSES: n ormal capillary refill. ABDOMEN: s oft, non-distended, non-tender, no masses. MUSCULOSKELETAL: n o deformity or scoliosis noted, normal range of motion, joints normal, no erythema, edema, effusion, or ecchymosis. EXTREMITY: n o clubbing, cyanosis, edema, or deformity with normal ROM in both upper and lower bilateral extremities. NEUROLOGIC: g rossly normal. SKIN: n o rashes, ulcerations, or suspicious lesions. LYMPH NODES: n o cervical adenopathy, nodes normal. MENTAL STATUS: a lert and oriented x3, normal mood and affect. P rostate: Prostate Symmetry S ymmetrical Lobes. Prostate Tenderness R ight Lobe no tenderness, Left lobe no tenderness. Prostate Consistency R ight lobe normal consistency, Left lobe normal consistency. Prostate Size 3 0 grams. Prostate Nodule N o prostate Nodule. Assessment: * Assessment: 1. E ssential (primary) hypertension - I10 (Primary) 2 . H ypercholesteremia - E78.00 3 . A rthralgia - M25.50 4 . I mpotence - N52.9? 5. D yspnea - R06.00 Plan: * Treatment: 2. H ypercholesteremia L AB: HEMOGLOBIN A1C (GLYCO) L AB: LIPID PANEL (CHOL/TRIG/HDL/LDL) L AB: THYROID PANEL (T4/TSH/FREE T3) L AB: PSA, SCREENING L AB: CMP (COMP MET STAPLES) w/eGFR CKD-EPI L AB: CBC WITH DIFF 3. A rthralgia L AB: HEMOGLOBIN A1C (GLYCO) L AB: LIPID PANEL (CHOL/TRIG/HDL/LDL) L AB: THYROID PANEL (T4/TSH/FREE T3) L AB: PSA, SCREENING L AB: CMP (COMP MET STAPLES) w/eGFR CKD-EPI L AB: CBC WITH DIFF 4. I mpotence L AB: HEMOGLOBIN A1C (GLYCO) L AB: LIPID PANEL (CHOL/TRIG/HDL/LDL) L AB: THYROID PANEL (T4/TSH/FREE T3) L AB: PSA, SCREENING L AB: CMP (COMP MET STAPLES) w/eGFR CKD-EPI L AB: CBC WITH DIFF 5. D yspnea L AB: HEMOGLOBIN A1C (GLYCO) L AB: LIPID PANEL (CHOL/TRIG/HDL/LDL) L AB: THYROID PANEL (T4/TSH/FREE T3) L AB: PSA, SCREENING L AB: CMP (COMP MET STAPLES) w/eGFR CKD-EPI L AB: CBC WITH DIFF I maging: Treadmill Stress Test with Nuclear Imaging * Procedure Codes: * * Sign off status: Completed Visit Status: C HK (Check Out) true * Provider: Sunday Nguyen ([facility])MD Date: 10/30/2024 Generated for Printi ng/Faxing/eTransmitting on: 11/06/2024 07:16 AM EDT History and Physical Notes * HPI (History of Present Illness) Category Sub-Category Detail Notes Category Not es General HTn stabel at home on chol - meds -revieweed [place] def anemai - tolerated meds impotence Examination Category Sub-Category Detail Notes Category Not es Prostate Prostate Symmetry Symmetrical Lobes Prostate Tenderness Right Lobe no tender ness, Left lobe no tenderness Prostate Consistency Right lobe normal c onsistency, Left lobe normal consistency Prostate Size 30 grams Prostate Nodule No prostate Nodule Physical Exam GENERAL: well developed, well nouris hed, in no acute distress HEAD: normocephalic/atraum atic EYES: pupils equal, round and reactive to light, conjunctivae and sclerae normal EARS: no deformity or lesi on of external ear, canals and TM appear normal bilaterally, TM's intact, not inflamed with normal light reflex, hearing grossly normal to conversational speech NOSE: no deformity, discha rge, inflammation, or lesions MOUTH: mucous membranes trevor st, normal oropharynx and posterior pharynx without lesions or exudates, tongue normal, dentition normal NECK: neck supple, no mass es or palpable cervical nodes, trachea midline, thyroid without nodules, masses, tenderness, or enlargement CHEST: no chest wall deform ity, no chest wall tenderness LUNGS: normal respiratory e ffort and clear to auscultation, no wheezes, rales, or rhonchi, good air exchange CARDIO: regular rate and rhy thm, normal S1 and S2, nor murmur, rub, or gallop PULSES: normal capillary ref ill ABDOMEN: soft, non-distended, non-tender, no masses RECTAL: MUSCULOSKELETAL: no deformity or scol iosis noted, normal range of motion, joints normal, no erythema, edema, effusion, or ecchymosis EXTREMITY: no clubbing, cyanosi s, edema, or deformity with normal ROM in both upper and lower bilateral extremities NEUROLOGIC: grossly normal SKIN: no rashes, ulceratio ns, or suspicious lesions LYMPH NODES: no cervical adenopat hy, nodes normal MENTAL STATUS: alert and oriented x 3, normal mood and affect
--- OUTSIDE RECORDS SUMMARY | 2024-11-06 07:16 | XMS_ITS | Patient Health Record ---
Author Organization The [facility] in [place] Address [address] [place] [address] Care Team Providers Care Pig Iron Loader Name Role Phone Oh Nguyen Primary Care Provider Allergies No Known Allergies Results Component Value Reference Range Notes PROF 14(COMP METB) Reviewed date:10/30/2024 05:25:31 PM Interpretation: Performing Lab: Notes/Report: [facility] , Sodium 140 136-145 mmol/L Potassium 3.8 3.5-5.1 mmol/L Chloride 105 98-107 mmol/L Carbon Dioxide 30.3 21.0-32.0 mmol/L Anion Gap 8.5 Glucose 101 74-106 mg/dL Blood Urea Nitrogen 19.0 7.0-18.0 mg/dL Creatinine 1.10 0.70-1.30 mg/dL Estimated GFR ( Suzanne >60 >=60 mL/min/1.73m 2 Estimated GFR (Non- Nohemi >60 >=60 mL/min/1.73m 2 BUN Creatinine Ratio 17.3 Calcium 8.8 8.5-10.1 mg/dL Bilirubin Total 1.0 0.2-1.0 mg/dL Aspartate Amino Transferase 26 15-37 U/L Alanine Aminotransferase 46 16-63 U/L Alkaline Phosphatase 107 46-116 U/L Total Protein 7.8 6.4-8.2 g/dL Albumin Level 4.0 3.4-5.0 g/dL Globulin 3.8 Albumin Globulin Ratio 1.1 Performing Lab: see note ML - [facility] LB T4 Reviewed date:10/30/2024 05:25:31 PM Interpretation: Performing Lab: Notes/Report: [facility] , T4 Thyroxine 6.60 4.50-12.10 ug/dL Performing Lab: see note ML - [facility] LB TSH Reviewed date:10/30/2024 05:25:31 PM Interpretation: Performing Lab: Notes/Report: [facility] , Thyroid Stimulating Hormone 2.301 0.358-3.740 u IU/mL Performing Lab: see note ML - [facility] LB LIPID PROFILE Reviewed date:10/30/2024 05:25:31 PM Interpretation: Performing Lab: Notes/Report: [facility] , Triglycerides 135 <=150 mg/dL Cholesterol 194 <=200 mg/dL HDL Cholesterol 54 40-60 mg/dL > or =60 mg/dl - LOW CARDIOVASCULAR RISK <40 mg/dl - HIGH CARDIOVASCULAR RISK LDL Cholesterol Calculated 113.0 >190 mg/dl VERY HIGH <100 mg/dl OPTIMAL 130-159 mg/dl BORDERLINE HIGH 160-189 mg/dl HIGH 100-129 mg/dl NEAR OR ABOVE OPTIMAL VLDL CHOLESTEROL 27.0 Chol HDL Ratio 3.6 7.1 - 11.0 MODERATE RISK 3.3 - 4.4 LOW RISK >11.0 HIGH RISK 4.4 - 7.1 AVERAGE RISK Performing Lab: see note ML - [facility] LB GLYCOHEMOGLOBIN A1C Reviewed date:10/30/2024 05:25:31 PM Interpretation: Performing Lab: Notes/Report: [facility] , Glycohemoglobin A1C 5.4 4.5-6.2 % ACTION SUGGESTED ADA THERAPEUTIC TARGET < 7.0 > 7.0 ADA RECOMMENDED LIMIT 4.0 - 6.0 Estimated Average Glucose 108 Performing Lab: see note ML - [facility] LB FREE T3 Reviewed date:10/30/2024 05:25:31 PM Interpretation: Performing Lab: Notes/Report: [facility] , Free T3 2.56 2.18-3.98 pg/mL Performing Lab: see note ML - [facility] LB CBC AUTO DIFF Reviewed date:10/30/2024 05:25:31 PM Interpretation: Performing Lab: Notes/Report: [facility] , White Blood Count 5.3 4.0-11.0 10 3/uL Red Blood Count 4.73 4.70-6.10 10 6/uL Hemoglobin 14.4 14.0-18.0 g/dL Hematocrit 41.6 42.0-54.0 % Mean Corpuscular Volume 87.9 80.0-94.0 fL Mean Corpuscular Hemoglobin 30.4 25.9-34.0 pg Mean Corpuscular HGB Conc 34.6 29.9-35.2 g/dL Red Cell Distribution Width 12.9 11.0-15.0 % Platelet Count 180 150-450 10 3/uL Mean Platelet Volume 10.9 9.5-13.5 fL Neutrophils Percent Auto 59.3 43.0-75.0 % Lymphocytes Percent Auto 26.8 20.5-60.0 % Monocytes Percent Auto 9.8 1.7-12.0 % Eosinophils Percent Auto 3.0 0.9-7.0 % Basophils Percent Auto 0.9 0.2-2.0 % Immature Granulocytes Pct Auto 0.2 0.0-0.5 % Neutrophils Absolute Auto 3.2 1.4-6.5 10 3/uL Lymphocytes Absolute Auto 1.4 1.2-3.8 10 3/uL Monocytes Absolute Auto 0.5 0.3-0.8 10 3/uL Eosinophils Absolute Auto 0.2 0.0-0.7 10 3/uL Basophils Absolute Auto 0.1 0.0-0.1 10 3/uL Immature Granulocytes Abs Auto 0.01 0.00-0.03 10 3/uL Performing Lab: see note ML - [facility] PSA SCREENING Reviewed date:10/30/2024 05:25:31 PM Interpretation: Performing Lab: Notes/Report: [facility] , Prostate Specific Antigen Scrn 1.48 <=4.00 ng/mL Performing Lab: see note ML - [facility] Reason For Referral No Information Medications Medication [...] Status Risk Notes Problem Essential hypertensi on (11863229) Essential (primary) hypertension (I10) Active confirmed Problem Gastro-esophageal reflux disease without esophagitis (248311245) Gastro-esophageal reflux disease without esophagitis (K21.9) Active confirmed Problem Tubular adenoma of colon (388784487) Tubular adenoma of colon (D12.6) Active confirmed Problem Erectile dysfunction (disorder) (827082615) Impotence (N52.9) Active confirmed Problem Benign neoplasm of colon (69118956) Hyperplastic colonic polyp (K63.5) Active confirmed Problem hypercholesterolemia (disorder) (13632635) Hypercholesteremia (E78.00) Active confirmed Problem Low back pain (finding) (618681265) Other low back pain (M54.59) Active confirmed Vital Signs Blood pressure diastolic 82 mm Hg 10/30/2024 Height 69 in 10/30/2024 Blood pressure systolic 152 mm Hg 10/30/2024 Weight 226.8 lbs 10/30/2024 BMI 33.49 kg/m2 10/30/2024 Procedures Procedure Date Ordered Date Performed Result Body Sit e Colonoscopy 11/09/2023 Positive Encounters Encounter Location Date Provider Diagnosis [address] [place] [address] 10/30/2024 Oh Nguyen Essential (primary) hypertension I10 ; Hypercholesteremia E78.00 ; Arthralgia M25.50 ; Impotence N52.9 and Dyspnea R06.[address] [address] 11/11/2023 Oh Nguyen Essential (primary) hypertension I10 [place] [address] [place] [address] 11/28/2023 Oh Balay [address] [place] [address] 10/30/2024 Oh Nguyen Assessments Encounter Date Diagnosis (ICD [...] ADVANTAGE CHOICE MEDICARE HMO [address] [place] [address] [id number] Phillip Salcedo Self - patient is the insured [place] [address] [place] [address] [id number] Phillip Salcedo Self - patient is the insured [employer] [address] [place] [address] [phone] [id number] Phillip Salcedo Self - patient is the insured Medical (General) History Surgical History Surgery Date(Month/Year) Colonoscopy- NILL 2023 Kidney Stone Removal Hand Surgery- Right 1981 Leg Surgery- Left
--- OUTSIDE RECORDS SUMMARY | 2024-11-06 07:16 | XMS_ITS | CCD ---
Author Organization [facility] Care Team Providers Care Needle Grinder Name Role Phone SHELLEY BAINS Attending Unavailable SHELLEY BAINS Primary Care Unavailable SHELLEY BAINS Admitting Unavailable Logan Nguyen Primary Care Physician [phone] MD Jesus Alberto Zapata Attending Provider Jesus Alberto Zapata Attending Unavailable Jesus Alberto Zapata Admitting Unavailable NILJesus Alberto rGegorio Attending Unavailable NILJesus Alberto Gregorio Attending Unavailable NILL, Jesus Alberto Grace Attending Unavailable Logan Nguyen Referring Unavailable NILLJesus Alberto Attending Unavailable Allergies Allergy Classification Reported Allergen(s) Allergy Type Date of Onset Reaction(s) Facility (1 source) No Known Medication Allergies; Translations: [No Known Medication Allergies] Propensity to adverse reactions (disorder) [facility] Medications Current Medications Medication Drug Class(es) Dates Sig (Normalized) Sig (Original) acetaminophen 325 mg / HYDROcodone bitartrate 5 mg oral tablet (2 sources) Opioid Agonist Start: 07-27-2017 take 1 tablet by mouth every four to six hours Hydrocodone-Acetam inophen ([place]) 5-325 mg tablet Active 1 TAB PO [...] Refill(s) 0 Start Date: 09/29/23 Status: Ordered [place] 9-Ywr-Ciw-Fish Oil (Fish Oil) 1,000 mg (120 mg-180 mg) Capsule (1 source) Start: 07-25-2017 [place] 3-Mgl-Zrm-Fish Oil (Fish Oil) 1,000 mg (120 mg-180 [...] us for your care. Jose David [facility] General Surgery Office/Clini c Noteon 11-22-2023 General [...] mRNA BNT-162b2 vax 05/02/2020 Recorded Normal [facility] Comment on above: Result Comment: Electronically Signed By : BERTIN YI, Jesus Alberto Page\Date and Time Signed: 11/22/23 15:03 EDT Reminderson 11-22-2023 Reminders Reminders From: Rosario Frank LPN To: N - Clinical; Sent: 11/22/2023 14:54:28 EDT Show up: 10/08/2028 07:00:00 EDT Subject: colonoscopy recall Due Date/Time: 11/08/2028 07:00:00 EDT Reminder/Recall Patient due for surveillance colonoscopy 11/08/28 due to history of tubular adenoma. Normal [facility] 11-09-2023 L Specimen: [id number] eceived: 11/09/23 Status: HARRIETT Monsivais Num: [id number] Spec Type: Surgical Subm Dr: Jesus Alberto Zapata MD FACS Tissues: A Colon Biopsy (SIGMOID POLYP) B Colon Biopsy (RECTAL POLYP) Procedures: HE/4, Gross/Micro L4/2 Age/ Patient Sex Location Account Attending Physician Yvonne Salcedo 67/M [place] [id number] Jesus Alberto Zapata MD FACS SPEC NUM: [id number] RECD: 11/09/23 STATUS: HARRIETT MONSIVAIS NUM: [id number] MANUEL: 11/09/[address]: Jesus Alberto Zapata MD FACS ENTERED: 11/09/[address] [facility] [address]: Cecil Beth SPEC TYPE: Surgical DEPT: [place] ENTERED BY: [id number] RECV BY: [id number] ORDERED: HE/4, Gross/Micro L4/2 ORDERED: HE/4, Gross/Micro [...] in greatest dimension. The specimen -- Specimen: [id number] Received: 11/09/23 Status: HARRIETT Monsivais Num: [id number] Spec Type: Surgical Subm Dr: Jesus Alberto Zapata MD FACS Tissues: A Colon Biopsy (SIGMOID POLYP) B Colon Biopsy (RECTAL POLYP) Procedures: CHINMarina Gross/Micro L4/2 -- Patient: Yvonne Salcedo [id number] (Continued) -- Specimen: [id number] Received: 11/09/23 (Continued) Gross Description (Continued) Signed (signature on file) Daniel Monroy MD 11/14/23 1037 -- Specimen: [id number] Received: 11/09/23 Status: HARRIETT Monsivais Num: [id number] Spec Type: Surgical Subm Dr: Jesus Alberto Zapata MD FACS Tissues: A Colon Biopsy (SIGMOID POLYP) B Colon Biopsy (RECTAL POLYP) Procedures: Marina Gross/Micro L4/2 -- Patient: Yvonne Salcedo [id number] (Continued) -- Specimen: [id number] Received: 11/09/23 (Continued) Gross Description (Continued) is entirely submitted in cassette B1. Microscopic Description Microscopic examinations are performed supporting the above interpretation CPT Codes 60600 X2 -- -- Specimen: [id number] Received: 11/09/23 Status: HARRIETT Monsivais Num: [id number] Spec Type: Surgical Subm Dr: Jesus Alberto Zapata MD FACS Tissues: A Colon Biopsy (SIGMOID POLYP) B Colon Biopsy (RECTAL POLYP) Procedures: HE/4, Gross/Micro L4/2 -- Patient: Yvonne Salcedo [id number] (Continued) -- Signed (signature on file) Daniel Monroy MD 11/14/23 1037 Normal [facility] Vital Signs Date Time Vital Sign Value Performing Clinician Savannah scott 10-19-2023 13:07-0400 Blood Pressure Location Jesus Alberto [facility]APATA [facility] [place] 10-19-2023 13:07-0400 Diastolic blood pressure 82 mm[Hg] Jesus Alberto ZAPATA [facility] [place] 10-19-2023 13:07-0400 Heart rate 72 /min Jesus Alberto ZAPATA [facility] [place] 10-19-2023 13:07-0400 Respiratory rate 16 /min Jesus Alberto ZAPATA [facility] [place] 10-19-2023 13:07-0400 Systolic blood pressure 138 mm[Hg] Jesus Alberto ZAPATA [employer] [place] Encounters Encounter Date Encounter Type Care Provider Facility Start: 11-22-2023 End: 11-22-2023 ambulatory Jesus Alberto ZAPATA Facility:[facility] Start: 11-22-2023 End: 11-22-2023 Patient encounter procedure Jesus Alberto ZAPATA [facility] [place] Start: 11-09-2023 End: 11-09-2023 ambulatory Jesus Alberto Zapata [facility] Work Phone: Start: 11-09-2023 End: 11-09-2023 Departed Referred MD Jesus Alberto Zapata Work Phone: [facility] [place] [facility] Start: 11-09-2023 End: 11-09-2023 ambulatory Jesus Alberto ZAPATA Facility::[id number] Start: 10-19-2023 End: 10-19-2023 ambulatory Jesus Alberto R NILJg Facility: [place] Start: 10-19-2023 End: 10-19-2023 Patient encounter procedure Jesus Alberto ZAPATA [facility] Start: 07-16-2021 ambulatory SHELLEY BAINS Facility:H 1 [...] ) mRNA BNT-162b2 vax Jesus Alberto NILL [facility] General Surgery [place] 05-02-2020 SARS-CoV-2 (COVID-19 ) mRNA BNT-162b2 vax Jesus Alberto NILL [facility] Payers Date Payer Category Payer Medicare [id number] 1959 Self-pay 1955 Unknown [id number] 2.16.84 [id number] 1955 Unknown [id number] 2.16.8 [id number] 1955 Unknown [id number] 2.16.8 [id number] 1955 Unknown [id number] 2.16.8 [id number] 1955 Unknown [id number] 2.16.8 [id number] Unknown [employer] [id number] Unknown [id number] 2.16.8 [id number] Social History Date Type Detail Facility Start: 10-19-2023 Tobacco smoking status Never s moked tobacco (finding) [facility] Tobacco smoking status Never [facility] Sex Assigned At Male [facility] Start: 1955 Sex Assigned At Male [facility] Functional Status Date Assessment Result Facility 10-19-2023 Functional Status N/A [facility] Clinical Note 10-19-2023 Note Date & [...] SARS-CoV-2 (COVID-19) mRNA BNT-162b2 vax 05/02/2020 Recorded [facility] Comment on above: Result Comment: Elec tronically Signed By: BERTIN YI, Jesus Alberto Herreraleyla\Date and Time Signed: 10/19/23 13:45 EDT Evaluation + Plan note Note Date & Type Note Facility Evaluation + Plan note No data available for this section [facility] Evaluation note Note Date & Type Note Facility Evaluation note No assessment information availa [facility] Work Phone: Hospital Discharge instructions Note Date & Type Note Facility Hospital Discharge instructions No data available for this section [facility] Progress note Note Date & Type Note Facility Progress note No data available for this section [facility] Summary Purpose Family History No Family History [...] CREATED AUTHOR AUTHOR'S ORGANIZ ATION 11/15/[address] [facility] DATE CREATED AUTHOR AUTHOR'S ORGANIZ ATION 11/24/2023 [facility] Patient Care team informatio n (unrecognized section and content) Personnel Name: Wendy YI Logan Address: Address: [address] [place] [id number] Team Status: Inactive Member Role Status [...] BE BASED ON THE PRIMARY CLINICAL RECORDS. [facility] [place] [facility]. provides no warranty or guarantee of the accuracy or completeness of information in this document.
--- NOTE | 2024-11-06 07:30 | NM_ITS ---
Patient Name: YVONNE LANGE MR#: [id number] : 1955 Exam Date: 11/06/2024 Ordering Doctor: DR JASON SANDHU . RADIOLOGY REPORT PROCEDURE: NM SOFIYA PERF SPECT REST STR COMPARISON: None. INDICATIONS: DYSPNEA TECHNIQUE: Exam Description: Stress/Rest two day protocol gated SPECT Rest Imagin.6 mCi Tc-99m Cardiolite IV on 11/06/2024 Stress Imaging 31.1 mCi Tc-99m Cardiolite IV on 11/06/2024 Exercise Protocol: Sen Heart Rate (bpm): Rest: 62 Max: 169 PMHR: 111 Blood Pressure: Rest: 158/88 Max: 212/98 Exercise Time: Minutes: 10 Seconds: 40 Stage Reached: Stage: 4 Mets 13.4 Symptoms: Rest and peak stress ECG findings were pending and the EKG portion of the study was pending per attending physician [facility] [[email or web address]] . For more details please see separate cardiac stress test report. FINDINGS: QUALITY OF STUDY: Good PERFUSION DEFECT: LOCATION: Inferior lateral SIZE: Small to medium SEVERITY: Mild TYPE: Reversible WALL MOTION: Normal LV SIZE: 81 mL. TID / TCD: 0.7 LVEF: Calculated EF 73%. SUMMARY: Abnormal myocardial perfusion imaging study CONCLUSION: Abnormal myocardial perfusion stress images showing evidence of mild inferolateral ischemia Normal left ventricle stock function, ejection fraction 73% No evidence of transient ischemic dilatation, TID score 0.7 EKG portion of the stress test is reported separately Dictated by: Ninfa Callaway MD on 11/08/2024 at 12:54 Approved by: Ninfa Callaway MD on 11/08/2024 at 13:00
--- NOTE | 2024-11-06 09:10 | PC.NURSE ---
Nursing Note Cardiac Stress Test Reviewed: Medication, allergies and patient history reviewed. Stress Test: [x] Patient tolerated stress test well. [ ] Patient unable to tolerate walking on treadmill. Switched to Lexiscan stress test. [x ] No chest pain noted per patient [ ] Chest pain that resolved prior to leaving stress lab. [ ] No dyspnea noted. [x ] Dyspnea that resolved prior to leaving stress lab. [x ] Patient left stress lab asymptomatic and hemodynamically stable. [ ] Patient taken to the Emergency Room due to non-resolving symptoms following stress test. [x ] Patient achieved target heart rate. [ ] Patient unable to achieve target heart rate. [ ] Aminophylline administered as reversal agent to Lexiscan (Regadenoson). [ ] Nitro administered. Nursing Comments:Pt had cardiolite test done. tolerated well. no chest pain and sob resolved within 3 minutes of rest.
--- NOTE | 2024-11-06 12:32 | PM.STRESS ---
Stress Test Stress Test Allergies Allergy/AdvReac Type Severity Reaction Status Date / Time No Known Drug Allergies Allergy Verified 11/09/23 07:19 Requesting physician: Logan Nguyen Procedure: Treadmill Nuclear stress test General Information: Reason for Stress Test: Dyspnea Cardiac History and Risk Factors: Hypertension Resting 12 - Lead Electrocardiogram: Sinus rhythm with normal intervals and normal R wave progression Stress Test: Protocol: Sen protocol Exercise Capacity: 10 minutes 40 seconds achieving stage 4 and maximum METS of 13.4 Blood Pressure Response: Baseline blood pressure of 158/88 mmHg heart rate of 62 beats per minute to a maximum of 212/90 mmHg heart rate of 169 bpm achieving 111% of expected. Blood pressure response was normal heart rate recovery also was normal with no evidence of chronotropic incompetence Inspection: Rhythm: Sinus ST - Response: No significant ST changes noted suggestive of ischemia Patient Response: Occasional PVCs and PACs noted Interpretation: 1. No EKG evidence of ischemia noted with stress test 2. Normal blood pressure response and heart rate recovery noted with a Guerrero treadmill score greater than 5 which predicts low risk for adverse cardiac events 3. Good functional capacity noted on treadmill stress test 4. Nuclear portion of the study to be dictated separately Juan Curry MD
== END 2024-11-06 07:15 | disposition home or self-care (01) ==
LOC: NM 07:14
PROVIDERS: PCP Family Medicine; Visit Provider Family Medicine
DX: R06.00 Dyspnea, unspecified (principal)
CPT/HCPCS: 78452; 93017; A9500